=== PATIENT | male | born 1940 | race Caucasian/White ===

== ENCOUNTER 2022-06-09 10:30 | Outpatient (RCR) | payer MEDICARE, BC, SELFPAY ==
[2022-05-01] MEDS: HEPARIN 500 UNIT/5 ML SYRINGE IVF (11:48)
[2022-05-01] MEDS: SODIUM CHLORIDE 0.9 % (FLUSH) 10 ML SYRINGE IVF (11:48)
== END 2022-10-28 23:59 | disposition home or self-care (01) ==
LOC: CCIC 10:30
PROVIDERS: Visit Provider Internal Medicine Hematology & Oncology
DX: C83.30 Diffuse large B-cell lymphoma, unspecified site (principal)
CPT/HCPCS: 99211; J1642

== ENCOUNTER 2022-09-05 16:02 | Emergency (ER) | payer OTHER, MEDICARE, BC, SELFPAY ==
[2022-09-05] VITALS (15 sets, daily range): BP systolic 147–161; BP diastolic 75–86; PULSE 60–69; RESP 16; TEMP 36.5–36.6; O2SAT 99–100; BMI 23.5
--- NOTE | 2022-09-05 16:58 | ED_ITS ---
HPI - Male Genitourinary General Chief complaint: Urogenital Problems, Male Stated complaint: Blood in Urine,Exhausted/Pain since Stroke Time Seen by Provider: 09/05/22 16:36 History of Present Illness HPI Narrative: Pt is an 82 year old gentleman who is on eliquis following a CVA several months ago who passed blood in his uirne twice. Once last night and once today. Pt otherwise feels fine. [place] which went well. Pt feels well and doesn't remember ever having blood in his urine in the past. Pt has no other urinary symptoms. Pt has some memory loss due to his CVA but his son is with him telling me that there have been no other issues. Pt is no longer on aspirin. Related Data Home Medications Medication Instructions Recorded Confirmed B-complex with vitamin C 1 tab PO DAILY 05/01/22 09/05/22 amiodarone 200 mg tablet 100 mg PO DAILY 05/01/22 09/05/22 apixaban 2.5 mg tablet (Eliquis) 2.5 mg PO BID 05/01/22 09/05/22 ascorbic acid (vitamin C) 500 mg 500 mg PO DAILY 05/01/22 09/05/22 capsule aspirin 81 mg tablet,delayed 81 mg PO DAILY 05/01/22 09/05/22 release atorvastatin 80 mg tablet 80 mg PO QPM 05/01/22 09/05/22 cholecalciferol (vitamin D3) 25 25 mcg PO DAILY 05/01/22 09/05/22 mcg (1,000 unit) capsule levothyroxine 100 mcg capsule 100 mcg PO DAILY 05/01/22 09/05/22 melatonin 3 mg capsule 3 mg PO HS PRN 05/01/22 09/05/22 metformin 1,000 mg tablet 500 mg PO BID 05/01/22 09/05/22 metoprolol succinate 25 mg 12.5 mg PO DAILY 05/01/22 09/05/22 tablet,extended release 24 hr multivitamin 1 tab PO DAILY 05/01/22 09/05/22 pantoprazole 40 mg tablet,delayed 40 mg PO DAILY 05/01/22 09/05/22 release sertraline 50 mg tablet 50 mg PO DAILY 05/01/22 09/05/22 spironolactone 25 mg tablet 12.5 mg PO DAILY 05/01/22 09/05/22 tamsulosin 0.4 mg capsule 0.4 mg PO DAILY 05/01/22 09/05/22 vitamin E mixed 400 unit capsule 400 unit 05/01/22 Allergies Allergy/AdvReac Type Severity Reaction Status Date / Time No Known Drug Allergies Allergy Verified 09/05/22 16:41 Review of Systems Status of ROS: Reports: 10 or more systems reviewed and unremarkable except as noted in History and below [facility] Medical History (Updated 09/05/22 @ 18:49 by Cleveland Borja MD) Atrial flutter B-cell lymphoma CHF (congestive heart failure) CVA (cerebral vascular accident) Diabetes Hypertension Hypothyroidism Social History Smoking Status: Never smoker Do you use any of these nicotine containing products: None Second hand tobacco smoke exposure: No How often do you have a drink containing alcohol: never AUDIT-C Alcohol total score: 0 Non-prescribed substance use: denies use service: Yes Exam 2 Narrative: Exam Narrative: EXAM GENERAL: Patient appears comfortable and well. EYES: No scleral icterus. ENT: Tympanic membranes and oropharynx normal. THYROID: no thyroid nodules or thyromegaly. LYMPH: No supraclavicular or cervical lymphadenopathy. SKIN: Visible skin seen during exam normal or with benign process only. EXT: No dependent lower extremity pedal edema. HEART: Regular rate and rhythm with no murmurs, rubs, or gallops. LUNGS: Clear to auscultation bilaterally with no crackles or wheezes. ABD: Soft, non tender, non distended. PSYCH: Good eye contact, speech is not pressured. Const: Vital Signs, click to edit/add: Vital Signs - 24 hr 09/05/22 16:45 09/05/22 16:40 09/05/22 16:41 Temperature 97.7 F Pulse Rate 68 66 Pulse Rate [Pulse Oximeter] 67 Respiratory Rate 16 Blood Pressure 161/80 H Blood Pressure [Ri ght Upper Arm] 161/80 H Pulse Oximetry 100 100 100 Oxygen Delivery Me thod Room Air 09/05/22 16:45 09/05/22 17:02 09/05/22 17:15 Temperature Pulse Rate 67 69 62 Pulse Rate [Pulse Oximeter] Respiratory Rate Blood Pressure 147/86 H Blood Pressure [Ri ght Upper Arm] Pulse Oximetry 100 100 100 Oxygen Delivery Me thod 09/05/22 17:30 09/05/22 17:32 09/05/22 17:46 Temperature Pulse Rate 62 62 66 Pulse Rate [Pulse Oximeter] Respiratory Rate Blood Pressure 155/80 H Blood Pressure [Ri ght Upper Arm] Pulse Oximetry 100 100 100 Oxygen Delivery Me thod 09/05/22 18:00 09/05/22 18:02 09/05/22 18:15 Temperature Pulse Rate 61 62 63 Pulse Rate [Pulse Oximeter] Respiratory Rate Blood Pressure 147/75 H Blood Pressure [Ri ght Upper Arm] Pulse Oximetry 100 99 100 Oxygen Delivery Me thod 09/05/22 18:30 09/05/22 18:32 Temperature Pulse Rate 60 61 Pulse Rate [Pulse Oximeter] Respiratory Rate Blood Pressure 155/78 H Blood Pressure [Ri ght Upper Arm] Pulse Oximetry 100 100 Oxygen Delivery Me thod Course Course Hospital Course: UA, CMP, CBC ordered. Reevaluation(s) Reevaluation #1: Labs are reviewed and significant for a Hgb of 9.7, a Cr of 2.4 and a Glucose of 327. CT of the abd and pelvis without contrast upon my review shows a 3mm proximal renal stone. Time: 18:41 Vital Signs Vital signs: Initial Vital Signs Pulse Rate 68 09/05/22 16:40 Blood Pressure 161/80 H 09/05/22 16:40 Blood Pressure Mean 107 09/05/22 16:40 Pulse Oximetry 100 09/05/22 16:40 Vital Signs Pulse Rate 68 09/05/22 16:40 Blood Pressure 161/80 H 09/05/22 16:40 Pulse Oximetry 100 09/05/22 16:40 Temperature 97.7 F 09/05/22 16:45 Pulse Rate 61 09/05/22 18:32 Respiratory Rate 16 09/05/22 16:45 Blood Pressure 155/78 H 09/05/22 18:32 Pulse Oximetry 100 09/05/22 18:32 Oxygen Delivery Method 09/05/22 16:45 MDM - Male Genitourinary MDM Narrative Medical decision making narrative: Pt is a very complex 82 year old gentleman who presents with 2 episodes of painless hematuria. Pt's evaluation shows a 3 mm kidney stone. He has no history of kidney stones or hematuria but is on Eliquis. Pt labs also show chronic appearing anemia, renal insufficiency and hyperglycemia. Pt had his glyburide discontinued due to hypoglycemia and metformin was previously stopped due to renal insufficiency. Pt feels well now and has no concerns. I have a number of concerns. [facility] and does not have a local primary to help with the many chronic issues. I asked his son to help him get back [facility] touch with the [facility] to make sure that we are following up on the Chronic Renal Insufficiency and anemia. I am reluctant to start Flomax due to polypharmacy already present. Pt will hydrate and screen his urine. I also gave them my card and asked that they contact me to help with management of his complex issues. Pt will hold his Eliquis tonight and [facility] in [facility]. Differential Diagnosis Differential diagnosis: Likely urinary tract infection, urethritis, prostatitis and acute retention of urine Lab Data Labs: Lab Results 09/05/22 09/05/22 09/05/22 Range/Units 16:52 17:10 17:10 WBC 6.20 (4.50-11.00) K/uL RBC 3.09 L (4.30-5.90) m/uL Hgb 9.7 L (13.5-17.5) gm/dL Hct 29.5 L (37.0-53.0) % MCV 96 (80-100) fL MCH 31 (26-34) pg MCHC 33 (32-36) gm/dL RDW Coeff of Kurt 13.1 (11.5-15.5) % Plt Count 250 (140-440) K/uL Neut % (Auto) 67.5 (42.0-72.0) % Lymph % (Auto) 21.6 (20-44) % [place] % (Auto) 9.0 (0.0-11.0) % Eos % (Auto) 1.1 (0.0-7.0) % Baso % (Auto) 0.6 (0.0-3.0) % Neut # (Auto) 4.18 (1.7-7.0) K/uL Lymph # (Auto) 1.34 (0.90-2.90) K/uL [place] # (Auto) 0.60 (0.00-0.90) K/UL Eos # (Auto) 0.07 (0.00-0.50) K/uL Baso # (Auto) 0.04 (0.00-0.30) K/uL Sodium 136 (135-149) mmol/L Potassium 4.4 (3.6-5.1) mmol/L Chloride 103 (96-114) mmol/L Carbon Dioxide 25 (20-32) mmol/L BUN 31 H (7-30) mg/dL Creatinine 2.4 H (0.5-1.5) mg/dL Estimated Creat Clear 22.19 Estimated GFR 26 ml/min Glucose 327 H (60-115) mg/dL Calcium 8.3 L (8.4-10.6) mg/dL Urine Color Red A (Yellow) Urine Appearance Cloudy A (Clear) Urine pH 5.5 (5.0-8.5) Ur Specific [place] 1.015 (1.000-1.030) Urine Protein 2+ A (Negative) Urine Glucose (UA) 2+ A (Negative) Urine Ketones Negative (Negative) Urine Blood 3+ A (Negative) Urine Nitrite Negative (Negative) Urine Bilirubin Negative (Negative) Urine Urobilinogen 0.2 (0.2-1.0) Ur Leukocyte Esterase Negative (Negative) Urine RBC >100 A (0-2) Urine WBC 2-5 (0-5) Urine WBC Clumps None (None) Ur Squamous Epith Cells None (None-Few) Urine Bacteria None (None) Discharge Plan Discharge Clinical Impression: Kidney stone Patient Disposition: Home, Self-Care Condition: Stable Instructions: Kidney Stones (ED) Additional Instructions: Hold veronika's eliquis Screen urine Hydrate [facility] Borja Activity Level: No Restrictions Discharge Diet: Regular Prescriptions: No Action amiodarone 200 mg tablet 100 mg PO DAILY Eliquis 2.5 mg tablet 2.5 mg PO BID ascorbic acid (vitamin C) 500 mg capsule 500 mg PO DAILY aspirin 81 mg tablet,delayed release (DR/EC) 81 mg PO DAILY atorvastatin 80 mg tablet 80 mg PO QPM B-complex with vitamin C Tablet 1 tab PO DAILY cholecalciferol (vitamin D3) 25 mcg (1,000 unit) capsule 25 mcg PO DAILY levothyroxine 100 mcg capsule 100 mcg PO DAILY melatonin 3 mg capsule 3 mg PO HS PRN metformin 1,000 mg tablet 500 mg PO BID Hold Instructions: kidney disease metoprolol succinate 25 mg tablet extended release 24 hr 12.5 mg PO DAILY multivitamin Tablet 1 tab PO DAILY pantoprazole 40 mg tablet,delayed release (DR/EC) 40 mg PO DAILY sertraline 50 mg tablet 50 mg PO DAILY spironolactone 25 mg tablet 12.5 mg PO DAILY tamsulosin 0.4 mg capsule 0.4 mg PO DAILY Hold Instructions: unknown vitamin E mixed 400 unit capsule 400 unit Follow Up/Referrals: Provider,Not a Local [Primary Care Provider] - Stand Alone Forms: [employer] Info Instructions
[2022-09-05 17:06] LABS: Appearance Urine Cloudy (Clear); Bilirubin Urine Negative (Negative); Blood Urine 3+ (Negative); Color Urine Red (Yellow); Glucose Urine 2+ (Negative); Ketones Urine Negative (Negative); Leukocyte Esterase Urine Negative (Negative); Nitrite Urine Negative (Negative); Protein Urine 2+ (Negative); Specific Gravity Urine 1.015 (1.000-1.030); Urobilinogen Urine 0.2 (0.2-1.0); pH Urine 5.5 (5.0-8.5)
[2022-09-05 17:21] LABS: RBC Urine >100 (0-2)
--- NOTE | 2022-09-05 17:22 | CRLHL7_ITS ---
For Patients: As a result of the Century Cures Act, medical imaging exams and procedure reports are released immediately into your electronic medical record. You may view this report before your referring provider. If you have questions, please contact your health care provider. INDICATION: Hematuria. TECHNIQUE: CT abdomen and pelvis without contrast. COMPARISON: January 12, 2020. FINDINGS: Lower chest: Elevation of the left hemidiaphragm. Scattered dependent atelectasis. Partial visualization of severe coronary artery calcifications/stenting. Liver: Normal in size and attenuation. No suspicious masses. Gallbladder and bile ducts: Cholecystectomy. Pancreas: Unremarkable. No mass or inflammation. Spleen: Normal in size. No masses. Adrenal glands: Right adrenal calcifications likely from remote injury. Kidneys: Minimal right hydroureteronephrosis secondary to 3 millimeter proximal right ureteral stone. Additional tiny bilateral nonobstructing stones. GI tract: Colonic diverticulosis without diverticulitis. Moderate colonic stool burden. Normal in caliber. No sign of mass or inflammation. Vasculature: Moderate aortoiliac arterial calcifications. Abdominal aorta is normal in caliber. Lymph nodes: No lymphadenopathy. Peritoneum/Abdominal Wall: Unremarkable. No sign of mass or infiltration. No free air or significant free fluid. Pelvis: Prostatomegaly, abutting the base of the bladder. Mild circumferential bladder wall thickening. Bones: Left hip intertrochanteric nail. Degenerative changes of the osseous structures. Age-indeterminate T10 compression deformity. Recommend correlation for point tenderness. IMPRESSION: Minimal right hydroureteronephrosis secondary to a 3 millimeter proximal right ureteral stone. Additional tiny bilateral nonobstructing renal stones. Prostatomegaly with circumferential bladder wall thickening, likely related to chronic bladder outlet obstruction from BPH. Recommend correlation with urinalysis if superimposed UTI suspected. Age-indeterminate T10 compression deformity. Recommend correlation for point tenderness Please note that all CT scans at this facility use dose modulation, iterative reconstruction, and/or weight-based dosing when appropriate to reduce radiation dose to as low as reasonably achievable. Dictated by Mark Cevallos MD @ 09/05/2022 6:21:08 PM (Electronically Signed)
[2022-09-05 17:28] LABS: Basophils Absolute Auto 0.04 K/uL (0.00-0.30); Basophils Percent Auto 0.6 % (0.0-3.0); Eosinophils Absolute Auto 0.07 K/uL (0.00-0.50); Eosinophils Percent Auto 1.1 % (0.0-7.0); Hematocrit 29.5 % (37.0-53.0); Hemoglobin* 9.7 gm/dL (13.5-17.5); Immature Granulocytes Abs Auto 0.01 K/uL (0.00-0.30); Immature Granulocytes Pct Auto 0.2 %; Lymphocytes Absolute Auto 1.34 K/uL (0.90-2.90); Lymphocytes Percent Auto 21.6 % (20-44); Mean Corpuscular HGB Conc 33 gm/dL (32-36); Mean Corpuscular Hemoglobin 31 pg (26-34); Mean Corpuscular Volume 96 fL (80-100); Neutrophils Absolute Auto 4.18 K/uL (1.7-7.0); Neutrophils Percent Auto 67.5 % (42.0-72.0); Platelet Count* 250 K/uL (140-440); RDW Coefficient of Variation % 13.1 % (11.5-15.5); Red Blood Count 3.09 m/uL (4.30-5.90)
[2022-09-05 17:31] LABS: Slide Review Reflex No
[2022-09-05 17:45] LABS: Chloride* 103 mmol/L (96-114); Potassium* 4.4 mmol/L (3.6-5.1); Sodium* 136 mmol/L (135-149)
[2022-09-05 17:48] LABS: Carbon Dioxide* 25 mmol/L (20-32); Creatinine* 2.4 mg/dL (0.5-1.5); Est. Creatinine Clearance* 22.19; Estimated Glomerular Filt Rate 26 ml/min
[2022-09-05 17:49] LABS: Blood Urea Nitrogen* 31 mg/dL (7-30); Calcium* 8.3 mg/dL (8.4-10.6); Glucose* 327 mg/dL (60-115)
[2022-09-05] MEDS: HEPARIN 500 UNIT/5 ML SYRINGE IVF (18:52)
--- NOTE | 2022-09-05 19:07 | ED.NURSE ---
Patient was discharged with son. PORT de-accessed with heparin. Vital signs within normal limits. Patient is to hold P[facility]ce and [facility] Borja tomorrow. Supplies for straining urine instructed and sent home with patient and son. All questions answered and left via wheelchair escort with son.
== END 2022-09-05 19:09 | disposition home or self-care (01) ==
PROVIDERS: Emergency Provider Internal Medicine
DX: N20.0 Calculus of kidney (principal)
CPT/HCPCS: 36415; 74176; 80048; 81003; 81015; 85025; 99283; J1642

== ENCOUNTER 2022-09-12 19:29 | Emergency (ER) | payer MEDICARE, BC, SELFPAY ==
[2022-09-12 19:43] VITALS: BP 132/74; PULSE 82; RESP 16; TEMP 37.1; O2SAT 98
--- NOTE | 2022-09-12 20:47 | ED_ITS ---
HPI - General Adult General Chief complaint: Fall/Minor Trauma Stated complaint: Two Falls Today Time Seen by Provider: 09/12/22 19:32 Source: patient and family Mode of arrival: ambulatory Limitations: other (Dementia) History of Present Illness HPI narrative: 82-year-old male who lives independently with his comes in with his daughter today for evaluation of 2 mechanical-type fall today. The 1st fall happened this morning, he was reaching while in bed towards his cellphone when he reached too far and fell out of bed. He did not hit his head, lose consciousness or have any neurological changes and was able to get up without assistance. This evening, he was reaching around a chair, unplugging some Jevon lights when he lost his balance and fell over. He had some mild back pain as a result but again was able to get himself up without difficulty and has been ambulating around the house with no problems. He has a history of a stroke and has some cognitive impairment as a result. Daughter states that he is mentating at his baseline today. They do not notice any neurological changes, urinary incontinence. When I talked to him about his pain, he denies any knee pain hip pain, pelvis pain, he points to his right lower back as a source of potential back pain. But again he is able to ambulate into the exam room without difficulty. Has not tried taking Tylenol or ibuprofen to help with his symptoms. Did not hit his head. He has not been showing any new signs of illness, fevers, vomiting. His appetite has remained good. He has remained a little fatigued through the day but is still able to get himself to the bathroom, perform basic ADLs. When I asked his daughter if there was some major concern as to why they came to the emergency department, she reports that since he fell twice she thought he should be evaluated. When I ask more questions regarding home safety and his overall situation, she states that they are looking into more elder services for both him and his . They do have ongoing concerns about his home safety but do not feel like he is in imminent harm currently. He still manages his own medications and it does appear as though he takes these consistently even if he cannot list what therefore or their names. Past medical history reviewed from ER chart last week. Med seem consistent with EMR database. No known drug allergies. Socially the family denies any intoxication or suspicion for drug use. ROS is notable only for the musculoskeletal symptoms as above, otherwise at baseline times 12 systems. Related Data Home Medications Medication Instructions Recorded Confirmed B-complex with vitamin C 1 tab PO DAILY 05/01/22 09/05/22 amiodarone 200 mg tablet 100 mg PO DAILY 05/01/22 09/12/22 apixaban 2.5 mg tablet (Eliquis) 2.5 mg PO BID 05/01/22 09/12/22 ascorbic acid (vitamin C) 500 mg 500 mg PO DAILY 05/01/22 09/12/22 capsule aspirin 81 mg tablet,delayed 81 mg PO DAILY 05/01/22 09/12/22 release atorvastatin 80 mg tablet 80 mg PO QPM 05/01/22 09/12/22 cholecalciferol (vitamin D3) 25 25 mcg PO DAILY 05/01/22 09/05/22 mcg (1,000 unit) capsule levothyroxine 100 mcg capsule 100 mcg PO DAILY 05/01/22 09/12/22 melatonin 3 mg capsule 3 mg PO HS PRN 05/01/22 09/12/22 metformin 1,000 mg tablet 500 mg PO BID 05/01/22 09/12/22 metoprolol succinate 25 mg 12.5 mg PO DAILY 05/01/22 09/12/22 tablet,extended release 24 hr multivitamin 1 tab PO DAILY 05/01/22 09/12/22 pantoprazole 40 mg tablet,delayed 40 mg PO DAILY 05/01/22 09/12/22 release sertraline 50 mg tablet 50 mg PO DAILY 05/01/22 09/12/22 spironolactone 25 mg tablet 12.5 mg PO DAILY 05/01/22 09/05/22 tamsulosin 0.4 mg capsule 0.4 mg PO DAILY 05/01/22 09/12/22 vitamin E mixed 400 unit capsule 400 unit 05/01/22 Allergies Allergy/AdvReac Type Severity Reaction Status Date / Time No Known Drug Allergies Allergy Verified 09/05/22 16:41 [facility] Medical History Atrial flutter B-cell lymphoma CHF (congestive heart failure) CVA (cerebral vascular accident) Diabetes Hypertension Hypothyroidism Social History Smoking Status: Never smoker Do you use any of these nicotine containing products: None Second hand tobacco smoke exposure: No How often do you have a drink containing alcohol: never AUDIT-C Alcohol total score: 0 Non-prescribed substance use: denies use service: Yes Exam 2 Const: Vital Signs, click to edit/add: Vital Signs - 24 hr 09/12/22 19:43 Temperature 98.7 F Pulse Rate [Left P ulse Oximeter] 82 Respiratory Rate 16 Blood Pressure [Ri ght Upper Arm] 132/74 Pulse Oximetry 98 Oxygen Delivery Me thod Room Air Documenting provider has reviewed patient's vital signs: yes Common normals: no apparent distress and alert General appearance: cooperative and well kempt Orientation/consciousness: Yes awake Other: Poor historian but attempts to answer questions. No confabulation. HENMT: Common normals: normocephalic and head/scalp atraumatic Head and scalp: normocephalic and atraumatic Face and sinus: normal facial exam Mouth: oral and palatal mucosa normal Throat: posterior oropharynx normal Eye: Common normals: PERRL, EOMs intact bilaterally and conjunctivae normal Conjunctiva: conjunctiva(e) normal Pupil: PERRL Neck & C-Spine: Common normals: full ROM and no lymphadenopathy Cervical spine: cervical ROM normal; no cervical spine tenderness Resp: Common normals: normal respiratory effort, no use of accessory muscles and clear to auscultation bilaterally Effort & inspection: able to speak in complete sentences Auscultation: clear to auscultation bilaterally Cardio: Common normals: regular rate, regular rhythm, no murmurs and peripheral pulses 2+ throughout Rate: regular rate Rhythm: regular rhythm Peripheral pulses: pulses 2+ throughout GI: Common normals: Normal to inspection, nondistended, normoactive bowel sounds present and soft to palpation Palpation: soft : Common normals: no CVA tenderness Bladder/kidney exam: no CVA tenderness Back & Pelvis: Common normals: no CVA tenderness Thoracic spine/upper back: normal to inspection Lumbar spine/lower back: normal to inspection, paraspinal muscle tenderness (Mild, on right near L4/L5) and straight leg raise negative bilaterally; no paraspinal muscle spasm Sacroiliac joints: SI joints normal Other: No point bony tenderness on thoracic or lumbar spine. Able to pull himself up with the side rails and ambulate without difficulty. Extremity: Common normals: normal to inspection and full ROM Other: Both knees with no bruising, no effusion, normal range of motion and no point bony tenderness. Neuro: Sensorium/orientation: awake and alert Gait (neuro): normal gait Motor exam: no tremor noted and no movement abnormalities noted Psych: Common normals: speech normal Appearance: well kempt Speech: normal speech Mood and affect: euthymic mood Insight: fair Judgement: fair Skin: Common normals: no rashes or lesions noted Narrative: No bruising, injury or signs of trauma. General skin exam: no rashes or lesions noted Course Vital Signs Vital signs: Initial Vital Signs Temperature 98.7 F 09/12/22 19:43 Temperature Source Temporal Artery Scan 09/12/22 19:43 Pulse Rate 82 09/12/22 19:43 Respiratory Rate 16 09/12/22 19:43 Blood Pressure 132/74 09/12/22 19:43 Blood Pressure Mean 93 09/12/22 19:43 Blood Pressure Position Standing 09/12/22 19:43 Pulse Oximetry 98 09/12/22 19:43 Oxygen Delivery Method 09/12/22 19:43 Vital Signs Temperature 98.7 F 09/12/22 19:43 Pulse Rate 82 09/12/22 19:43 Respiratory Rate 16 09/12/22 19:43 Blood Pressure 132/74 09/12/22 19:43 Pulse Oximetry 98 09/12/22 19:43 Oxygen Delivery Method 09/12/22 19:43 Temperature 98.7 F 09/12/22 19:43 Pulse Rate 82 09/12/22 19:43 Respiratory Rate 16 09/12/22 19:43 Blood Pressure 132/74 09/12/22 19:43 Pulse Oximetry 98 09/12/22 19:43 Oxygen Delivery Method 09/12/22 19:43 Medical Decision Making MDM Narrative Medical decision making narrative: Counseled family on the mechanism of falls, both sound very mechanical. He is not exhibiting any significant pain and has had no symptoms of illness or change from baseline. Offered labs, workup, x-rays but they are very unlikely to change my management. More time was spent discussing home safety, overall prognosis and during that daughter is aware of his dementia and they have a plan to move forward on getting them more help and a safer living situation. She verbalizes that she does not think labs or additional workup would be helpful today, they can take Tylenol at home and they will continue moving forward with her safety plan as a family. I agree that this is best for them. Discharge Plan Discharge Clinical Impression: Accident due to mechanical fall without injury Patient Disposition: Home w/ Parent or Adult Condition: Stable Instructions: Fall Prevention for Older Adults (ED) Additional Instructions: There were no signs of significant injury from the mechanical-type falls from today. I do not recommend further workup. I have significant concerns about overall frailty and his ability to continue living independently, managing his own medications, knowing what to do in minor accident situations. As we discussed, mild mechanical-type falls that do not seem to result in any major injury do not need to be looked at in the emergency department unless there are neurological changes, he cannot bear weight, or has a significant change in stat us. I recommend Tylenol for pain, he is likely to have a back ache for the next 3-7 days. I do not recommend any advanced imaging based on the exam, as it would not change our management even if we did see a minor change. I am glad to hear that you are already looking at additional assistance options as I do question his ability to live independently as time moves forward. Please follow-up with your primary care provider if your symptoms fail to improve or worsen. Activity Level: No Restrictions Discharge Diet: Regular Prescriptions: No Action amiodarone 200 mg tablet 100 mg PO DAILY Eliquis 2.5 mg tablet 2.5 mg PO BID ascorbic acid (vitamin C) 500 mg capsule 500 mg PO DAILY aspirin 81 mg tablet,delayed release (DR/EC) 81 mg PO DAILY atorvastatin 80 mg tablet 80 mg PO QPM B-complex with vitamin C Tablet 1 tab PO DAILY cholecalciferol (vitamin D3) 25 mcg (1,000 unit) capsule 25 mcg PO DAILY levothyroxine 100 mcg capsule 100 mcg PO DAILY melatonin 3 mg capsule 3 mg PO HS PRN metformin 1,000 mg tablet 500 mg PO BID Hold Instructions: kidney disease metoprolol succinate 25 mg tablet extended release 24 hr 12.5 mg PO DAILY multivitamin Tablet 1 tab PO DAILY pantoprazole 40 mg tablet,delayed release (DR/EC) 40 mg PO DAILY sertraline 50 mg tablet 50 mg PO DAILY spironolactone 25 mg tablet 12.5 mg PO DAILY tamsulosin 0.4 mg capsule 0.4 mg PO DAILY Hold Instructions: unknown vitamin E mixed 400 unit capsule 400 unit Follow Up/Referrals: Provider,Not a Local [Primary Care Provider] - Stand Alone Forms: [employer] Info Instructions
[2022-09-12 21:00] VITALS: BP 171/85; PULSE 77; RESP 14; O2SAT 98
== END 2022-09-12 21:06 | disposition home or self-care (01) ==
LOC: ED 20:53
PROVIDERS: Emergency Provider Family Medicine
DX: Z71.1 Person with feared health complaint in whom no diagnosis is made (principal); W01.0XXA Fall on same level from slipping, tripping and stumbling without subsequent striking against object, initial encounter
CPT/HCPCS: 99283

== ENCOUNTER 2023-05-01 14:30 | Emergency (ER) | payer MEDICARE, MEDICAID, BC, SELFPAY ==
[2023-05-01 15:18] VITALS: BP 94/60; PULSE 89; RESP 16; TEMP 36.4; O2SAT 97; BMI 25.1
[2023-05-01 17:03] VITALS: BP 103/68; PULSE 85; RESP 18; O2SAT 98
--- NOTE | 2023-05-01 17:29 | ED_ITS ---
HPI - General Adult General Chief complaint: Weakness Stated complaint: sleeping excessively, not eating, difficult breath Time Seen by Provider: 05/01/23 17:28 History of Present Illness HPI narrative: Starting two weeks, patient sleeping close to 20 hours per day, slight cough, no energy, poor appetite. Poor memory related to a stroke in January 2022. Per son, making at statements at home about wanting to give up related to declining health status.4 It 83-year-old man presenting to the emergency department with son with concern of fatigue. This is apparently the information that has been passed on by mother. Since his stroke in January of 2022 Mr. German does seem to have trouble with short-term recall. At this time he denies any pain. No fever or least no one has been measuring it. Not particularly short of breath but has been having some cough. Over the last few days has been sleeping excessively. Has not been eating very well. Poor energy. There have been some statements about ?wanting to give up? though Mr. German denies this and says that ?I think I want to live?. There have been some emotional outbursts apparently reported by spouse to son. Reportedly she is also concerned about his heart. Is not describing any chest pain. Is not engaging in any particular activities for diversion or spending time with anyone. Most of his friends would require being able to drive to visit. Does have a history of cardiac stenting Apparently gets care with visits twice a year at the [facility]. does take his pills and supervised though there is a system of alarms prompting him to take them. Ultimately unclear whether not he is actually taking them. Weight is thought to be around 160 at baseline but also uncertain. Sounds like he may have been admitted for diuresis and with elevated creatinine at some point Related Data Home Medications Medication Instructions Recorded Confirmed B-complex with vitamin C 1 tab PO DAILY 05/01/22 09/05/22 amiodarone 200 mg tablet 100 mg PO DAILY 05/01/22 09/12/22 apixaban 2.5 mg tablet (Eliquis) 2.5 mg PO BID 05/01/22 09/12/22 ascorbic acid (vitamin C) 500 mg 500 mg PO DAILY 05/01/22 09/12/22 capsule aspirin 81 mg tablet,delayed 81 mg PO DAILY 05/01/22 09/12/22 release atorvastatin 80 mg tablet 80 mg PO QPM 05/01/22 09/12/22 cholecalciferol (vitamin D3) 25 25 mcg PO DAILY 05/01/22 09/05/22 mcg (1,000 unit) capsule levothyroxine 100 mcg capsule 100 mcg PO DAILY 05/01/22 09/12/22 melatonin 3 mg capsule 3 mg PO HS PRN 05/01/22 09/12/22 metformin 1,000 mg tablet 500 mg PO BID 05/01/22 09/12/22 metoprolol succinate 25 mg 12.5 mg PO DAILY 05/01/22 09/12/22 tablet,extended release 24 hr multivitamin 1 tab PO DAILY 05/01/22 09/12/22 pantoprazole 40 mg tablet,delayed 40 mg PO DAILY 05/01/22 09/12/22 release sertraline 50 mg tablet 50 mg PO DAILY 05/01/22 09/12/22 spironolactone 25 mg tablet 12.5 mg PO DAILY 05/01/22 09/05/22 tamsulosin 0.4 mg capsule 0.4 mg PO DAILY 05/01/22 09/12/22 vitamin E mixed 400 unit capsule 400 unit 05/01/22 Previous Rx's Medication Instructions Recorded furosemide 40 mg tablet 40 mg PO DAILY #30 tabs 05/01/23 Allergies Allergy/AdvReac Type Severity Reaction Status Date / Time No Known Drug Allergies Allergy Verified 09/05/22 16:41 Review of Systems Status of ROS: Reports: 6 or more systems reviewed and unremarkable except as noted in History and below [facility] Medical History CHF (congestive heart failure) ?I50.9 - Heart failure, unspecified (ICD-10) B-cell lymphoma ?C85.10 - Unspecified B-cell lymphoma, unspecified site (ICD-10) Diabetes ?E11.9 - Type 2 diabetes mellitus without complications (ICD-10) Hypothyroidism ?E03.9 - Hypothyroidism, unspecified (ICD-10) Hypertension ?I10 - Essential (primary) hypertension (ICD-10) CVA (cerebral vascular accident) ?I63.9 - Cerebral infarction, unspecified (ICD-10) Atrial flutter ?I48.92 - Unspecified atrial flutter (ICD-10) Social History Smoking Status: Never smoker Do you use any of these nicotine containing products: None Second hand tobacco smoke exposure: No How often do you have a drink containing alcohol: never AUDIT-C Alcohol total score: 0 Non-prescribed substance use: denies use service: Yes Exam Narrative: Exam Narrative: Flatter affect. NAD. Calm. Breathing easily. Lungs with some clearing basilar crepitus. Does not appear particularly frail just fatigued. Oropharynx is or little sticky mostly moist. Head is atraumatic. Neck is supple nontender. Heart in a regular rate and rhythm with is 2/6 systolic murmur. Abdomen is soft protuberant nontender. Skin is warm and dry without evidence of injury. Lower extremities are without edema. Extremities are well perfused. Does exhibit some difficulty in recall, noncommittal when pressed. Const: Vital Signs, click to edit/add: Vital Signs - 24 hr 05/01/23 15:18 05/01/23 17:03 Temperature 97.5 F L Pulse Rate [Right Pulse Oximeter] 89 85 Respiratory Rate 16 18 Blood Pressure [Ri ght Upper Arm] 94/60 103/68 Pulse Oximetry 97 98 Oxygen Delivery Me thod Room Air Room Air Documenting provider has reviewed patient's vital signs: yes Course Vital Signs Vital signs: Initial Vital Signs Temperature 97.5 F L 05/01/23 15:18 Temperature Source Temporal Artery Scan 05/01/23 15:18 Pulse Rate 89 05/01/23 15:18 Pulse Rhythm Regular 05/01/23 15:18 Respiratory Rate 16 05/01/23 15:18 Blood Pressure 94/60 05/01/23 15:18 Blood Pressure Mean 71 05/01/23 15:18 Blood Pressure Position Sitting 05/01/23 15:18 Pulse Oximetry 97 05/01/23 15:18 Oxygen Delivery Method Room Air 05/01/23 15:18 Vital Signs Temperature 97.5 F L 05/01/23 15:18 Pulse Rate 89 05/01/23 15:18 Respiratory Rate 16 05/01/23 15:18 Blood Pressure 94/60 05/01/23 15:18 Pulse Oximetry 97 05/01/23 15:18 Oxygen Delivery Method Room Air 05/01/23 15:18 Temperature 97.1 F L 05/01/23 21:11 Pulse Rate 78 08/15/23 21:11 Respiratory Rate 16 05/01/23 21:11 Blood Pressure 100/68 05/01/23 21:11 Pulse Oximetry 98 05/01/23 17:03 Oxygen Delivery Method Room Air 05/01/23 17:03 Medical Decision Making MDM Narrative Medical decision making narrative: With this small cough in fatigue will evaluate for potential infectious etiology. Does appear to be some depressive symptoms as well. Unclear who his primary care provider is. Denies being suicidal at this time but with mood lability this may be related. 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 This may also be related to these emotional outbursts. Given IV hydration as I would suspect hydrated as well. Might improve some energy. Creatinine looks to be near baseline. Transaminases somewhat elevated at a little over 400. This might be related to proBNP of over 27,000. Chest x-ray by my read does appear to have some interstitial congestion. Did order follow-up ultrasound I suspect this to be low yield. Confirmed absent gallbladder otherwise unremarkable per my conversation with postal service window clerk. CRP moderately elevated and probably related to what looks to be infected urine. Has been generally well here in the emergency department. Will try to manage outpatient. Give initial dose of furosemide here today. Likely combination of factors are contributing to fatigue that of CHF e xacerbation, urinary tract infection and some degree of depression following a stroke, failure to thrive? I did discuss this patient briefly with Dr. Borja. See patient discharge plan Lab Data Lab results reviewed: Yes I reviewed the patient's lab results Labs: Lab Results 05/01/23 05/01/23 Range/Units 18:00 19:15 WBC 4.84 (4.50-11.00) K/uL RBC 3.27 L (4.30-5.90) m/uL Hgb 8.9 L (13.5-17.5) gm/dL Hct 28.9 L (37.0-53.0) % MCV 88 (80-100) fL MCH 27 (26-34) pg MCHC 31 L (32-36) gm/dL RDW Coeff of Kurt 14.4 (11.5-15.5) % Plt Count 191 (140-440) K/uL Neut % (Auto) 67.6 (42.0-72.0) % Lymph % (Auto) 16.9 L (20-44) % [place] % (Auto) 14.3 H (0.0-11.0) % Eos % (Auto) 0.2 (0.0-7.0) % Baso % (Auto) 0.8 (0.0-3.0) % Neut # (Auto) 3.27 (1.7-7.0) K/uL Lymph # (Auto) 0.80 L (0.90-2.90) K/uL [place] # (Auto) 0.70 (0.00-0.90) K/UL Eos # (Auto) 0.01 (0.00-0.50) K/uL Baso # (Auto) 0.04 (0.00-0.30) K/uL Abs Immat Gran (auto) 0.01 (0.00-0.30) K/uL Imm/Tot Granulo (auto) 0.2 % Sodium 135 (135-149) mmol/L Potassium 3.4 L (3.6-5.1) mmol/L Chloride 98 (96-114) mmol/L Carbon Dioxide 24 (20-32) mmol/L BUN 29 (7-30) mg/dL Creatinine 1.8 H (0.5-1.5) mg/dL Estimated Creat Clear 29.07 Estimated GFR 37 ml/min Glucose 143 H (60-115) mg/dL Calcium 8.2 L (8.4-10.6) mg/dL Total Bilirubin 1.5 (0.1-1.5) mg/dL Direct Bilirubin 0.6 H (0.0-0.5) mg/dL AST 409 H (12-35) U/L ALT 406 H (4-50) U/L Alkaline Phosphatase 109 (40-150) U/L C-Reactive Protein 7.0 H (0.5-1.0) mg/dL NT-Pro-B Natriuret Pep 10168 pg/mL Total Protein 7.3 (6.0-8.3) g/dL Albumin 3.8 (3.3-5.0) g/dL TSH 1.050 (0.270-4.20) uIU/mL Urine Color [place] A (Yellow) Urine Appearance Clear (Clear) Urine pH 5.5 (5.0-8.5) Ur Specific [place] >= 1.030 (1.000-1.030) Urine Protein 2+ A (Negative) Urine Glucose (UA) Negative (Negative) Urine Ketones Negative (Negative) Urine Blood 3+ A (Negative) Urine Nitrite Negative (Negative) Urine Bilirubin Negative (Negative) Urine Urobilinogen 2.0 A (0.2-1.0) Ur Leukocyte Esterase 1+ A (Negative) Urine RBC 2-5 A (0-2) Urine WBC 25-50 A (0-5) Ur Squamous Epith Cells Few (None-Few) Urine Bacteria Few A (None) Fine Granular Casts Few A (None) Ethyl Alcohol < 0.01 L (0.01-0.03) % SARS-CoV-2 (PCR) Negative SARS-CoV-2 (Negative) Influenza Type A (PCR) Negative PCR FLU A (Negative) Influenza Type B (PCR) Negative PCR FLU B (Negative) RSV (PCR) Negative PCR RSV (Negative) Discharge Plan Discharge Clinical Impression: Urinary tract infection, Fatigue, CHF (congestive heart failure) Patient Disposition: Home w/ Parent or Adult Condition: Stable Instructions: Urinary Tract Infection in Men (ED) Additional Instructions: A urine culture is pending here. Please follow[facility] or [facility] seeing Dr[facility] Borja here in clinic. I would like you to be seen for recheck within a week. Would recheck labs at that time as well. Take furosemide as 40 mg daily for 6 days. Then I am hoping you can be reassessed in clinic. You received a dose here tonight and I would like you to take another dose tomorrow morning and then generally in the mornings. Return for worsening weakness, fever, increasing and persistent shortness of breath. I do think you need to find things to do to keep busy, interested. Might need some written reminder. Plan fun things to do with other people. Can discuss your feelings about your current circumstances on follow-up in primary care clinic. If you feel unsafe though please return to the emergency department. Prescriptions: New furosemide 40 mg tablet 40 mg PO DAILY Qty: 30 0RF No Action amiodarone 200 mg tablet 100 mg PO DAILY Eliquis 2.5 mg tablet 2.5 mg PO BID ascorbic acid (vitamin C) 500 mg capsule 500 mg PO DAILY aspirin 81 mg tablet,delayed release (DR/EC) 81 mg PO DAILY atorvastatin 80 mg tablet 80 mg PO QPM B-complex with vitamin C Tablet 1 tab PO DAILY cholecalciferol (vitamin D3) 25 mcg (1,000 unit) capsule 25 mcg PO DAILY levothyroxine 100 mcg capsule 100 mcg PO DAILY melatonin 3 mg capsule 3 mg PO HS PRN metformin 1,000 mg tablet 500 mg PO BID Hold Instructions: kidney disease metoprolol succinate 25 mg tablet extended release 24 hr 12.5 mg PO DAILY multivitamin Tablet 1 tab PO DAILY pantoprazole 40 mg tablet,delayed release (DR/EC) 40 mg PO DAILY sertraline 50 mg tablet 50 mg PO DAILY spironolactone 25 mg tablet 12.5 mg PO DAILY tamsulosin 0.4 mg capsule 0.4 mg PO DAILY Hold Instructions: unknown vitamin E mixed 400 unit capsule 400 unit Follow Up/Referrals: Provider,Not a Local [Primary Care Provider] - Stand Alone Forms: [facility] Info Inst[facility]
--- NOTE | 2023-05-01 17:47 | CRLHL7_ITS ---
For Patients: As a result of the Century Cures Act, medical imaging exams and procedure reports are released immediately into your electronic medical record. You may view this report before your referring provider. If you have questions, please contact your health care provider. INDICATION: Cough, fatigue. TECHNIQUE: Single portable AP view. COMPARISON: November 19, 2019. FINDINGS: Cardiomegaly. No new mediastinal widening. Sternotomy wires re-identified. Right-sided Port-A-Cath, not significantly changed. Elevation left hemidiaphragm, similar to prior. New pulmonary interstitial prominence bilaterally, and increasing opacity left greater than right lower zones. No sign of pneumothorax. IMPRESSION: Increasing bibasilar opacities and increased interstitial density, developing CHF would be a consideration. Dictated by Noah Morales MD @ 05/01/2023 6:55:42 PM (Electronically Signed)
[2023-05-01] MEDS: 0.9 % SODIUM CHLORIDE 1000 ml 1,000 ML IV (18:20)
[2023-05-01 18:28] LABS: Basophils Absolute Auto 0.04 K/uL (0.00-0.30); Basophils Percent Auto 0.8 % (0.0-3.0); Eosinophils Absolute Auto 0.01 K/uL (0.00-0.50); Eosinophils Percent Auto 0.2 % (0.0-7.0); Hematocrit 28.9 % (37.0-53.0); Hemoglobin* 8.9 gm/dL (13.5-17.5); Immature Granulocytes Abs Auto 0.01 K/uL (0.00-0.30); Immature Granulocytes Pct Auto 0.2 %; Lymphocytes Percent Auto 16.9 % (20-44); Mean Corpuscular HGB Conc 31 gm/dL (32-36); Mean Corpuscular Hemoglobin 27 pg (26-34); Mean Corpuscular Volume 88 fL (80-100); Monocytes Percent Auto 14.3 % (0.0-11.0); Neutrophils Absolute Auto 3.27 K/uL (1.7-7.0); Neutrophils Percent Auto 67.6 % (42.0-72.0); Platelet Count* 191 K/uL (140-440); RDW Coefficient of Variation % 14.4 % (11.5-15.5); Red Blood Count 3.27 m/uL (4.30-5.90); White Blood Count* 4.84 K/uL (4.50-11.00)
[2023-05-01 18:32] LABS: Slide Review Reflex No
[2023-05-01 18:48] LABS: Chloride* 98 mmol/L (96-114)
[2023-05-01 18:49] LABS: Albumin* 3.8 g/dL (3.3-5.0); Potassium* 3.4 mmol/L (3.6-5.1); Sodium* 135 mmol/L (135-149)
[2023-05-01 18:51] LABS: Creatinine* 1.8 mg/dL (0.5-1.5); Est. Creatinine Clearance* 29.07; Estimated Glomerular Filt Rate 37 ml/min
[2023-05-01 18:52] LABS: Alanine Aminotransferase* 406 U/L (4-50); Alkaline Phosphatase* 109 U/L (40-150); Aspartate Amino Transferase* 409 U/L (12-35); Bilirubin Direct* 0.6 mg/dL (0.0-0.5); Bilirubin Total* 1.5 mg/dL (0.1-1.5); Blood Urea Nitrogen* 29 mg/dL (7-30); Carbon Dioxide* 24 mmol/L (20-32); Glucose* 143 mg/dL (60-115); Total Protein* 7.3 g/dL (6.0-8.3)
[2023-05-01 18:53] LABS: Calcium* 8.2 mg/dL (8.4-10.6)
[2023-05-01 18:58] LABS: Ethanol* < 0.01 % (0.01-0.03)
[2023-05-01 19:02] LABS: NT Pro B Type NatriureticPept* 27500 pg/mL
[2023-05-01 19:06] LABS: PCR FLU A Negative PCR FLU A (Negative); PCR FLU B Negative PCR FLU B (Negative); PCR RSV Negative PCR RSV (Negative)
--- NOTE | 2023-05-01 19:08 | CRLHL7_ITS ---
For Patients: As a result of the Century Cures Act, medical imaging exams and procedure reports are released immediately into your electronic medical record. You may view this report before your referring provider. If you have questions, please contact your health care provider. Indication: Abnormal liver function tests Technique: Sonography of the right upper quadrant was performed Comparison: None Findings: The gallbladder is surgically absent. Due to body habitus factors, the liver is poorly seen. As visualized, there is no gross abnormality in terms of echogenicity, mass or biliary ductal dilation. The common duct was not identified. Impression: Limited examination as above. Dictated by Savage Rosa MD @ 05/01/2023 9:00:01 PM (Electronically Signed)
[2023-05-01 19:14] LABS: SARS PCR* Negative SARS-CoV-2 (Negative)
[2023-05-01 19:24] LABS: Appearance Urine Clear (Clear); Bilirubin Urine Negative (Negative); Blood Urine 3+ (Negative); Color Urine Amber (Yellow); Glucose Urine Negative (Negative); Ketones Urine Negative (Negative); Leukocyte Esterase Urine 1+ (Negative); Nitrite Urine Negative (Negative); Protein Urine 2+ (Negative); Specific Gravity Urine >= 1.030 (1.000-1.030); pH Urine 5.5 (5.0-8.5)
[2023-05-01 19:39] LABS: Bacteria Urine Few; Squamous Epithelial Cell Urine Few (None-Few); WBC Urine 25-50 (0-5)
[2023-05-01 19:40] LABS: Fine Granular Casts Urine Few
[2023-05-01] MEDS: FUROSEMIDE 40 MG TABLET PO (21:10)
[2023-05-01 21:11] VITALS: BP 100/68; PULSE 78; RESP 16; TEMP 36.2
== END 2023-05-01 21:12 | disposition home or self-care (01) ==
PROVIDERS: Emergency Provider Family Medicine
DX: N39.0 Urinary tract infection, site not specified (principal); I50.9 Heart failure, unspecified
CPT/HCPCS: 36415; 71045; 76705; 80048; 80076; 81001; 82077; 83880; 84443; 85025; 86140; 87086; 87631; 99284; 99285; A9270; J7030

== ENCOUNTER 2023-05-08 13:54 | Outpatient (CLI) | payer MEDICARE, BC, SELFPAY | END 2023-05-08 13:55 | disposition home or self-care (01) | LOC: NFLDREF 13:55 | PROVIDERS: Visit Provider Internal Medicine | DX: I50.9 Heart failure, unspecified (principal); R53.83 Other fatigue | CPT/HCPCS: 80053 ==

== ENCOUNTER 2023-06-04 15:46 | Observation (INO) | payer OTHER, SELFPAY ==
[2023-06-04] VITALS (22 sets, daily range): BP systolic 83–104; BP diastolic 52–73; PULSE 62–94; RESP 16; TEMP 36.1–36.5; O2SAT 90–99; BMI 25.1; BMI 24.3
--- NOTE | 2023-06-04 16:32 | ED.GENADULT ---
HPI - General Adult General Time Seen by Provider: 16:32 Date Seen: 06/04/23 Chief complaint: Unspecified Complaint, Adult Stated complaint: hardtime swallowing Time Seen by Provider: 06/04/23 16:30 Source: patient and RN notes reviewed Mode of arrival: ambulatory Limitations: no limitations History of Present Illness HPI narrative: This 83-year-old male is sent over from echo to be further evaluated. He was having an echo done today, son brought him to the ER. He is residing at home with his with home healthcare. There is also a resident care associate there. He is fallen multiple times recently. He has no complaints of pain at this point to me but did note that his tailbone hurt when sitting down. His son noted that he saw skin tear when he was changing into the gown for the echo on his left upper arm, is probably about 2-day-old. His son stops in daily. They have a program where they are getting meals, son will also cook for them. He notes that his dad has diminished appetite. He feels that he is choking at times eating and swallowing. Does wonder if he is aspirating at times. He feels he is more dizzy. Prior to going in reviewed with them that his AST and ALT were elevated in April, unclear if this is been followed up. This certainly needs to be rechecked. I also did review that his blood pressure has been lower when he has been in the last few times. Verbal report is that he has a lower ejection fraction on this current echo, will see if we can get a preliminary or formal report soon. Patient states he really has no idea what is going on here. On discussion with his son, it is unclear whether it is felt he is safe to return home or not. He was in on May 01 to the ER for sleeping more, not eating and breathing difficulty. Was found have congestive heart failure. I see at that visit his AST and ALT were in the 400s, C-reactive protein was elevated at 7, proBNP was 98148, he did have a normal TSH. We will be repeating labs in comparing. Unclear if the liver functions have been followed up. He does have underlying atrial fibrillation reported. Related Data Home Medications ?Medication ?Instructions ?Recorded ?Confirmed aspirin 81 mg tablet,delayed 81 mg PO DAILY 05/01/22 06/08/23 release sertraline 50 mg tablet 50 mg PO DAILY 05/01/22 06/08/23 tamsulosin 0.4 mg capsule 0.4 mg PO DAILY 05/01/22 06/08/23 Previous Rx's ?Medication ?Instructions ?Recorded furosemide 40 mg tablet 40 mg PO DAILY CHF #30 tabs 05/08/23 fentanyl 12 mcg/hr transdermal 1 patch transdermal Q72H 15 days 06/11/23 patch #5 ea Allergies Allergy/AdvReac Type Severity Reaction Status Date / Time No Known Drug Allergies Allergy Verified 06/07/23 09:31 Review of Systems Status of ROS: Reports: 6 or more systems reviewed and unremarkable except as noted in History and below [facility] Medical History (Updated 06/12/23 @ 00:01 by Background Daemon) Anemia ?D64.9 - Anemia, unspecified (ICD-10) Palliative care encounter ?Z51.5 - Encounter for palliative care (ICD-10) Frequent falls ?R29.6 - Repeated falls (ICD-10) Cardiogenic shock ?R57.0 - Cardiogenic shock (ICD-10) Non-Hodgkin lymphoma ?C85.90 - Non-Hodgkin lymphoma, unspecified, unspecified site (ICD-10) GERD (gastroesophageal reflux disease) ?K21.9 - Gastro-esophageal reflux disease without esophagitis (ICD-10) Dementia ?F03.90 - Unspecified dementia, unspecified severity, without behavioral disturbance, psychotic disturbance, mood disturbance, and anxiety (ICD-10) Atrial fibrillation ?I48.91 - Unspecified atrial fibrillation (ICD-10) Bronchitis ?J40 - Bronchitis, not specified as acute or chronic (ICD-10) CHF (congestive heart failure) ?I50.9 - Heart failure, unspecified (ICD-10) B-cell lymphoma ?C85.10 - Unspecified B-cell lymphoma, unspecified site (ICD-10) Diabetes ?E11.9 - Type 2 diabetes mellitus without complications (ICD-10) Hypothyroidism ?E03.9 - Hypothyroidism, unspecified (ICD-10) Hypertension ?I10 - Essential (primary) hypertension (ICD-10) CVA (cerebral vascular accident) ?I63.9 - Cerebral infarction, unspecified (ICD-10) Atrial flutter ?I48.92 - Unspecified atrial flutter (ICD-10) Social History (Updated 06/04/23 @ 21:13 by Mani Zepeda MD) Narrative: He lives in [place] with his . Son, Romel, lives nearby. Romel and his are healthcare power of technical administrator. Code status is DNR. He is a nonsmoker. What is your current living situation?: unable to answer Problems where you live: unable to answer Problems where you live details: pt now on comfort cares, was living in apartment with spouse 'Jose', no known issues per pt's family other than pt's need for higher level of cares and now on comfort cares, pt very drowsy and unable to answer questions, quickly resumes sleep In the past 12 months, utilities in danger of being shut off: unable to answer In past 12 months, lack of transportation kept you from medical appts, meetings, work, or getting things needed for daily living: unable to answer In the past 12 mos, have been you worried that your food would run out before you had money to buy more?: unable to answer In the past 12 mos, the food you bought just didn't last and you didn't have money to buy more?: unable to answer Highest level of school completed/degree received: don't know Smoking Status: Never smoker Do you use any of these nicotine containing products: None Second hand tobacco smoke exposure: No How often do you have a drink containing alcohol: monthly or less Alcohol type details: pt's family states pt had a couple beers Q month How often do you have six or more drinks on one occasion: Never AUDIT-C Alcohol total score: 1 Non-prescribed substance use: denies use Non-prescribed substance use details: pt's family denies pt use of substance Caffeine: Yes (black coffee daily per family) How often does anyone, including family, friends and others, physically hurt you: unable to answer How often does anyone, including family, friends and others, insult or talk down to you: unable to answer How often does anyone, including family, friends and others, threaten you with harm: unable to answer How often does anyone, including family, friends and others, scream or curse at you: unable to answer service: Yes Exam Const: Vital Signs, click to edit/add: Vital Signs - 24 hr 06/04/23 15:54 06/04/23 18:22 06/04/23 18:41 Temperature 97.7 F Pulse Rate 77 Pulse Rate [Pulse Oximeter] 88 Pulse Rate [orthos tatic lying Pulse Oximeter] 68 Pulse Rate [orthos tatic sitting Puls e Oximeter] 85 Pulse Rate [orthos tatic standing Pul se Oximeter] 86 Respiratory Rate 16 Blood Pressure 99/73 Blood Pressure [Ri ght Upper Arm] 99/64 Blood Pressure [or thostatic lying Ri ght Arm] 96/68 Blood Pressure [or thostatic sitting Right Arm] 102/66 Blood Pressure [or thostatic standing Right Arm] 84/52 L Pulse Oximetry 98 93 Oxygen Delivery Me thod Room Air Frail and slender 83-year-old male but alert and interactive, lying in the bed in exam room 6. Sclera clear, extraocular muscles intact. Pupils appear round normal. Symmetrical facial function. Oropharynx somewhat dry mucosa. Speech sounds normal. I do not appreciate any hoarseness. No visible traumatic changes on his scalp or head noted. Neck without midline tenderness, supple, no masses, no thyromegaly masses or nodules, no cervical adenopathy. Lungs with decreased air entry left base, maybe some fine crackles at the right base but overall clear outside of the diminished left base. CV regular currently, has low holosystolic murmur heard, can hear it throughout the precordium. Abdomen is thin, soft, not distended, no organomegaly, completely not tender. He has about 2 to 3+ pitting edema at least 2/[address] up his lower extremities. Documenting provider has reviewed patient's vital signs: yes Course Course ED Course: This is a patient on Eliquis with recurrent falls, on amiodarone with elevated LFTs, recent C reactive protein thought to be due to UTI when he was in in April. He is having increased weakness, falls. We need to head CT, will get pelvic imaging with x-ray. He will also get a chest x-ray as there is decreased breath sounds at the left base, could be recurrent CHF with pleural effusion. Son is talking about concerns for choking or aspiration which could be contributed to by prior stroke and increasing weakness of the musculature. Reviewed with his son that this should be evaluated with of swallow evaluation but this is not done out of the ER. Will get a full complement of labs, have him on pulse oximetry, get EKG. He could have multifactorial reasons for many of his symptoms. Will also get nurses to do orthostatic vitals. Reevaluation(s) Time of Reevaluation #1: 20:24 Reevaluation #1: Did speak with patient and then his son independently. Dr. Zepeda the hospitalist was down here as well as I had been reviewing this case with him already. The patient was found to be hypokalemic with potassium of 2.6. Did take in 50 mEq of the oral effervescent potassium. His son states he did get that down okay. We did review his low ejection fraction, evidence of clinical congestive heart failure on examination but lower blood pressures. Overall intravascularly he does appear to be dry. This starts to become very tenuous and difficulty balancing act to manage. On discussion of son's wishes, he wants his dad to have the best care possible. It sounds as if he would like him in of facility where he would get more care. It is his mom that is resisting this. At this time, plan is for the hospitalist to place him in for the weakness, hypokalemia, congestive heart failure. Overall his blood pressures are running lower and when he went to standing blood pressure went to 84/52 from a lying of 96/68, pulse only went up 3 beats from 83-86, likely suppressed from the metoprolol. Vital Signs Vital signs: Initial Vital Signs Temperature 97.7 F 06/04/23 15:54 Temperature Source Oral 06/04/23 15:54 Pulse Rate 88 06/04/23 15:54 Pulse Rhythm Regular 06/04/23 15:54 Pulse Strength 3+ Normal 06/04/23 15:54 Respiratory Rate 16 06/04/23 15:54 Blood Pressure 99/64 06/04/23 15:54 Blood Pressure Mean 75 06/04/23 15:54 Blood Pressure Position Sitting 06/04/23 15:54 Pulse Oximetry 98 06/04/23 15:54 Oxygen Delivery Method Room Air 06/04/23 15:54 Vital Signs Temperature 97.7 F 06/04/23 15:54 Pulse Rate 88 06/04/23 15:54 Respiratory Rate 16 06/04/23 15:54 Blood Pressure 99/64 06/04/23 15:54 Pulse Oximetry 98 06/04/23 15:54 Oxygen Delivery Method Room Air 06/04/23 15:54 Temperature 98 F 06/06/23 20:38 Pulse Rate 100 06/07/23 07:00 Respiratory Rate 22 06/07/23 07:00 Blood Pressure 94/69 06/06/23 20:38 Pulse Oximetry 94 06/06/23 20:38 Oxygen Delivery Method Room Air 06/06/23 20:38 Medical Decision Making Lab Data Lab results reviewed: Yes I reviewed the patient's lab results Labs: Lab Results 06/04/23 06/04/23 06/04/23 Range/Units 17:21 18:49 18:49 WBC 5.05 (4.50-11.00) K/uL RBC 3.32 L (4.30-5.90) m/uL Hgb 8.6 L (13.5-17.5) gm/dL Hct 27.7 L (37.0-53.0) % MCV 83 (80-100) fL MCH 26 (26-34) pg MCHC 31 L (32-36) gm/dL RDW Coeff of Kurt 17.0 H (11.5-15.5) % Plt Count 149 (140-440) K/uL Neut % (Auto) 76.8 H (42.0-72.0) % Lymph % (Auto) 11.7 L (20-44) % [place] % (Auto) 9.1 (0.0-11.0) % Eos % (Auto) 0.4 (0.0-7.0) % Baso % (Auto) 0.6 (0.0-3.0) % Neut # (Auto) 3.90 (1.7-7.0) K/uL Lymph # (Auto) 0.60 L (0.90-2.90) K/uL [place] # (Auto) 0.50 (0.00-0.90) K/UL Eos # (Auto) 0.02 (0.00-0.50) K/uL Baso # (Auto) 0.03 (0.00-0.30) K/uL Abs Immat Gran (auto) 0.07 (0.00-0.30) K/uL Imm/Tot Granulo (auto) 1.4 % Sodium 135 (135-149) mmol/L Potassium 2.6 L* (3.6-5.1) mmol/L Chloride 94 L (96-114) mmol/L Carbon Dioxide 27 (20-32) mmol/L Anion Gap 14 (7-15) mEq/L BUN 51 H (7-30) mg/dL Creatinine 2.2 H (0.5-1.5) mg/dL Estimated Creat Clear 23.79 Estimated GFR 29 ml/min Glucose 174 H (60-115) mg/dL Lactate 3.0 H (0.5-1.9) mmol/L Calcium 8.7 (8.4-10.6) mg/dL Magnesium 1.7 (1.5-2.6) mg/dL Total Bilirubin 1.9 H (0.1-1.5) mg/dL Direct Bilirubin 0.8 H (0.0-0.5) mg/dL AST 49 H (12-35) U/L ALT 32 (4-50) U/L Alkaline Phosphatase 78 (40-150) U/L Troponin I 0.03 (0.01-0.04) ng/mL C-Reactive Protein Cancelled 3.8 H NT-Pro-B Natriuret Pep 22205 pg/mL Total Protein 7.3 (6.0-8.3) g/dL Albumin 3.7 (3.3-5.0) g/dL SARS-CoV-2 (PCR) Negative SARS-CoV-2 (Negative) Influenza Type A (PCR) Negative PCR FLU A (Negative) Influenza Type B (PCR) Negative PCR FLU B (Negative) RSV (PCR) Negative PCR RSV (Negative) Imaging Data CT scan - head: Attestation: I have reviewed the pertinent imaging results. Radiologist's impression: Patient: MAG PIZARRO Facility:?[facility] Patient ID:?[id number] Site Patient ID:?[id number]. Site :?[id number] Study:?CT Head WITHOUT-06/04/2023 6:11:39 PM Ordering Physician:Tanner Casanova Final Report: Indication : Trauma. Technique : CT of the brain without intravenous contrast. Comparison: MR brain and CT head 02/03/2022. Findings: No acute blurring of the richard-white differentiation. There is no intracranial hemorrhage. The ventricles are proportionate to the cerebral sulci. The 4th ventricle is midline. Basal cisterns appear patent. No abnormal extra-axial fluid collection identified. Moderate parenchymal volume loss. There is moderate patchy periventricular hypodensity, favored to represent chronic ischemic microvascular disease. Chronic left thalamic infarct. There is no intracranial mass, mass effect or midline shift identified. No depressed calvarial fracture. Impression: 1. No acute intracranial process. 2. Moderate chronic ischemic microvascular disease. 3. Small chronic lacunar infarct of the left thalamus. Please note that all CT scans at this facility use dose modulation, iterative reconstruction, and/or weight-based dosing when appropriate to reduce radiation dose to as low as reasonably achievable. Dictated by Maninder Lugo MD @ 06/04/2023 7:39:23 PM (Electronic Signature) Chest x-ray: Attestation: I have reviewed the pertinent imaging results. My impression: Did compared to an old portable chest x-ray, has left hemidiaphragm elevation. Await Radiology over-read. Radiologist's impression: Patient: MAG PIZARRO Facility:?[facility] Patient ID:?[id number] Site Patient ID:?[id number]. Site :?[id number] Study:?XRay Chest 1 VIEW-06/04/2023 6:12:23 PM Ordering Physician:Tanner Casanova Final Report: INDICATION: Falls, pain. TECHNIQUE: Chest 1 views. COMPARISON: May 01, 2023. FINDINGS: Cardiovascular and mediastinum: Stable heart size and vasculature. Right chest wall port in similar position. Lungs and pleural spaces: Elevation of the left hemidiaphragm with lower lobe atelectasis. Stable prominent interstitium. No sign of large pleural effusion. No pneumothorax. Bones and soft tissues: No significant findings. IMPRESSION: Persistent elevation of the left hemidiaphragm with lower lobe atelectasis. Stable prominent interstitium, possibly mild pulmonary edema. No acute findings and no significant changes from the prior exam. Dictated by Mark Cevlalos MD @ 06/04/2023 7:49:47 PM (Electronic Signature) XR pelvis: Attestation: I have reviewed the pertinent imaging results. My impression: I see no acute fracture on my preliminary review of this pelvic film. Radiologist's impression: Patient: MAG PIZARRO Facility:?[facility] Patient ID:?[id number] Site Patient ID:?[id number]. Site :?[id number] Study:?XRay Pelvis 1 VIEW-06/04/2023 6:12:09 PM Ordering Physician:Tanner Casanova Final Report: Indication: Trauma. Technique: Pelvis, 1 views. Comparison: None. Findings/Impression: Bones: Left femoral intertrochanteric mike and nail without hardware complication. Alignment is normal. No displaced fractures or bone lesions. Joint spaces: Unremarkable. Soft tissues: Unremarkable. Dictated by Mark Cevallos MD @ 06/04/2023 7:48:04 PM (Electronic Signature) ECG Data Attestation: I personally reviewed and interpreted this ECG as follows: (Sinus rhythm with first-degree AV block, 88 beats per minute. Do see PAC possibly. Left bundle branch block. QT corrected 546 milliseconds.) Prior ECG tracings: not available for review Critical Care Time Critical Care Time Critical Care Time: No Discharge Plan Discharge Clinical Impression: CHF (congestive heart failure), Difficulty in swallowing, Weakness, Hypokalemia Patient Disposition: Admitted As Observation Activity Level: Activity as Tolerated Discharge Diet: Regular
--- NOTE | 2023-06-04 16:43 | CRLHL7_ITS ---
For Patients: As a result of the Century Cures Act, medical imaging exams and procedure reports are released immediately into your electronic medical record. You may view this report before your referring provider. If you have questions, please contact your health care provider. Indication: Trauma. Technique: Pelvis, 1 views. Comparison: None. Findings/Impression: Bones: Left femoral intertrochanteric mike and nail without hardware complication. Alignment is normal. No displaced fractures or bone lesions. Joint spaces: Unremarkable. Soft tissues: Unremarkable. Dictated by Mark Cevallos MD @ 06/04/2023 7:48:04 PM (Electronically Signed)
--- NOTE | 2023-06-04 16:44 | CRLHL7_ITS ---
For Patients: As a result of the Cures Act, medical imaging exams and procedure reports are released immediately into your electronic medical record. You may view this report before your referring provider. If you have questions, please contact your health care provider. INDICATION: Falls, pain. TECHNIQUE: Chest 1 views. COMPARISON: May 01, 2023. FINDINGS: Cardiovascular and mediastinum: Stable heart size and vasculature. Right chest wall port in similar position. Lungs and pleural spaces: Elevation of the left hemidiaphragm with lower lobe atelectasis. Stable prominent interstitium. No sign of large pleural effusion. No pneumothorax. Bones and soft tissues: No significant findings. IMPRESSION: Persistent elevation of the left hemidiaphragm with lower lobe atelectasis. Stable prominent interstitium, possibly mild pulmonary edema. No acute findings and no significant changes from the prior exam. Dictated by Mark Cevallos MD @ 06/04/2023 7:49:47 PM (Electronically Signed)
--- NOTE | 2023-06-04 16:46 | CRLHL7_ITS ---
For Patients: As a result of the Century Cures Act, medical imaging exams and procedure reports are released immediately into your electronic medical record. You may view this report before your referring provider. If you have questions, please contact your health care provider. Indication : Trauma. Technique : CT of the brain without intravenous contrast. Comparison: MR brain and CT head 02/03/2022. Findings: No acute blurring of the richard-white differentiation. There is no intracranial hemorrhage. The ventricles are proportionate to the cerebral sulci. The 4th ventricle is midline. Basal cisterns appear patent. No abnormal extra-axial fluid collection identified. Moderate parenchymal volume loss. There is moderate patchy periventricular hypodensity, favored to represent chronic ischemic microvascular disease. Chronic left thalamic infarct. There is no intracranial mass, mass effect or midline shift identified. No depressed calvarial fracture. Impression: 1. No acute intracranial process. 2. Moderate chronic ischemic microvascular disease. 3. Small chronic lacunar infarct of the left thalamus. Please note that all CT scans at this facility use dose modulation, iterative reconstruction, and/or weight-based dosing when appropriate to reduce radiation dose to as low as reasonably achievable. Dictated by Maninder Lugo MD @ 06/04/2023 7:39:23 PM (Electronically Signed)
[2023-06-04 19:18] LABS: Albumin* 3.7 g/dL (3.3-5.0); Chloride* 94 mmol/L (96-114)
[2023-06-04 19:19] LABS: Sodium* 135 mmol/L (135-149)
[2023-06-04 19:21] LABS: Basophils Absolute Auto 0.03 K/uL (0.00-0.30); Basophils Percent Auto 0.6 % (0.0-3.0); Creatinine* 2.2 mg/dL (0.5-1.5); Eosinophils Absolute Auto 0.02 K/uL (0.00-0.50); Eosinophils Percent Auto 0.4 % (0.0-7.0); Est. Creatinine Clearance* 23.79; Estimated Glomerular Filt Rate 29 ml/min; Hematocrit 27.7 % (37.0-53.0); Hemoglobin* 8.6 gm/dL (13.5-17.5); Immature Granulocytes Abs Auto 0.07 K/uL (0.00-0.30); Immature Granulocytes Pct Auto 1.4 %; Lymphocytes Percent Auto 11.7 % (20-44); Mean Corpuscular HGB Conc 31 gm/dL (32-36); Mean Corpuscular Hemoglobin 26 pg (26-34); Mean Corpuscular Volume 83 fL (80-100); Monocytes Percent Auto 9.1 % (0.0-11.0); Neutrophils Percent Auto 76.8 % (42.0-72.0); Platelet Count* 149 K/uL (140-440); Red Blood Count 3.32 m/uL (4.30-5.90); White Blood Count* 5.05 K/uL (4.50-11.00)
[2023-06-04 19:22] LABS: Alanine Aminotransferase* 32 U/L (4-50); Alkaline Phosphatase* 78 U/L (40-150); Anion Gap 14 mEq/L (7-15); Aspartate Amino Transferase* 49 U/L (12-35); Bilirubin Direct* 0.8 mg/dL (0.0-0.5); Bilirubin Total* 1.9 mg/dL (0.1-1.5); Blood Urea Nitrogen* 51 mg/dL (7-30); Calcium* 8.7 mg/dL (8.4-10.6); Carbon Dioxide* 27 mmol/L (20-32); Glucose* 174 mg/dL (60-115); Magnesium* 1.7 mg/dL (1.5-2.6); Slide Review Reflex No; Total Protein* 7.3 g/dL (6.0-8.3)
[2023-06-04 19:25] LABS: C Reactive Protein* 3.8 mg/dL (0.5-1.0); Potassium* 2.6 mmol/L (3.6-5.1)
[2023-06-04 19:33] LABS: Troponin I* 0.03 ng/mL (0.01-0.04)
[2023-06-04] MEDS: POTASSIUM BICARB 25 MEQ EFFERVESCENT TAB 50 MEQ PO ×2 (19:42→22:16)
[2023-06-04 19:46] LABS: PCR FLU A Negative PCR FLU A (Negative); PCR FLU B Negative PCR FLU B (Negative); PCR RSV Negative PCR RSV (Negative); SARS PCR* Negative SARS-CoV-2 (Negative)
[2023-06-04 19:47] LABS: NT Pro B Type NatriureticPept* 33300 pg/mL
--- NOTE | 2023-06-04 20:46 | ED.NURSE ---
Nurse to nurse report given to Howard. Patient going to room 249
--- NOTE | 2023-06-04 21:01 | PM.IMHP1 ---
Hospitalist- H&P: HPI History of Present Illness Date Seen: 06/04/23 Chief complaint: hardtime swallowing Narrative: Neel German is a 83 year old male with heart failure with reduced ejection fraction, coronary artery disease status post bypass, stage 4 kidney disease, non-Hodgkin's lymphoma, dementia, diabetes, stroke presents to the emergency room with increasing problems with trouble swallowing, increasing falls, worsening orthostatic lightheadedness. History is primarily obtained from the medical record and from his son. Patient has had ongoing decline especially since his stroke in January of 2022. In the last couple months this has been getting much worse. He has been seen in emergency rooms in the past month for heart failure and urinary tract infection. In the last week he has had increasing falls, almost daily. His only significant injury was to his left arm where he has a laceration and abrasion. He has not been using a walker or cane. He has been eating and drinking poorly and when he does eat or drink he coughs and sometimes coughs output he is eating. He appears to have trouble with swallowing. He has been eating quite poorly. He has not had shortness of breath or chest pain. He does not think that he has lost consciousness or had syncope when he falls. He does have chronic lower extremity edema. He does not use compression stockings. He reports being compliant with his medications. A nurse from the [facility] sets up his medications in a box that sets an alarm to remind him. The administration of the medications occurs at 11:00 a.m., 2:00 p.m. and 8:00 p.m.. His son thinks that he is pretty good about getting his medications. Review of Systems Narrative: Due to dementia patient is unable to give significant history of recent events or past medical history. His son is not aware of problems except multiple concerns outlined above. [facility] Medical History (Updated 06/04/23 @ 21:32 by Mani Zepeda MD) Anemia ?D64.9 - Anemia, unspecified (ICD-10) Palliative care encounter ?Z51.5 - Encounter for palliative care (ICD-10) Frequent falls ?R29.6 - Repeated falls (ICD-10) Cardiogenic shock ?R57.0 - Cardiogenic shock (ICD-10) Hypokalemia ?E87.6 - Hypokalemia (ICD-10) Non-Hodgkin lymphoma ?C85.90 - Non-Hodgkin lymphoma, unspecified, unspecified site (ICD-10) GERD (gastroesophageal reflux disease) ?K21.9 - Gastro-esophageal reflux disease without esophagitis (ICD-10) Dementia ?F03.90 - Unspecified dementia, unspecified severity, without behavioral disturbance, psychotic disturbance, mood disturbance, and anxiety (ICD-10) Atrial fibrillation ?I48.91 - Unspecified atrial fibrillation (ICD-10) Bronchitis ?J40 - Bronchitis, not specified as acute or chronic (ICD-10) CHF (congestive heart failure) ?I50.9 - Heart failure, unspecified (ICD-10) B-cell lymphoma ?C85.10 - Unspecified B-cell lymphoma, unspecified site (ICD-10) Diabetes ?E11.9 - Type 2 diabetes mellitus without complications (ICD-10) Hypothyroidism ?E03.9 - Hypothyroidism, unspecified (ICD-10) Hypertension ?I10 - Essential (primary) hypertension (ICD-10) CVA (cerebral vascular accident) ?I63.9 - Cerebral infarction, unspecified (ICD-10) Atrial flutter ?I48.92 - Unspecified atrial flutter (ICD-10) Social History (Updated 06/04/23 @ 21:13 by Mani Zepeda MD) Narrative: He lives in [place] with his . Son, Romel, lives nearby. Romel and his are healthcare power of employment attorney. Code status is DNR. He is a nonsmoker. Smoking Status: Never smoker Do you use any of these nicotine containing products: None Second hand tobacco smoke exposure: No How often do you have a drink containing alcohol: 2-4 times a month How often do you have six or more drinks on one occasion: Never AUDIT-C Alcohol total score: 2 Non-prescribed substance use: denies use service: Yes Meds Home Medications and Allergies Home Medications Medication Instructions Recorded Confirmed Type B-complex with vitamin C 1 tab PO DAILY 05/01/22 05/18/23 History amiodarone 200 mg tablet 100 mg PO DAILY 05/01/22 05/18/23 History apixaban 2.5 mg tablet (Eliquis) 2.5 mg PO BID 05/01/22 05/18/23 History ascorbic acid (vitamin C) 500 mg 500 mg PO DAILY 05/01/22 05/18/23 History capsule aspirin 81 mg tablet,delayed 81 mg PO DAILY 05/01/22 05/18/23 History release atorvastatin 80 mg tablet 80 mg PO QPM 05/01/22 05/18/23 History cholecalciferol (vitamin D3) 25 25 mcg PO DAILY 05/01/22 05/18/23 History mcg (1,000 unit) capsule levothyroxine 100 mcg capsule 100 mcg PO DAILY 05/01/22 05/18/23 History melatonin 3 mg capsule 3 mg PO HS PRN 05/01/22 05/18/23 History metoprolol succinate 25 mg 12.5 mg PO DAILY 05/01/22 05/18/23 History tablet,extended release 24 hr multivitamin 1 tab PO DAILY 05/01/22 05/18/23 History pantoprazole 40 mg tablet,delayed 40 mg PO DAILY 05/01/22 05/18/23 History release sertraline 50 mg tablet 50 mg PO DAILY 05/01/22 05/18/23 History tamsulosin 0.4 mg capsule 0.4 mg PO DAILY 05/01/22 05/18/23 History vitamin E mixed 400 unit capsule 400 unit 05/01/22 05/18/23 History Allergies Allergy/AdvReac Type Severity Reaction Status Date / Time No Known Drug Allergies Allergy Verified 06/04/23 15:54 Exam Narrative: Exam Narrative: He is alert and oriented to being in the hospital. Unable to tell me why he is here or any recent medical problems. He appears in no obvious distress. Quite pale in appearance. Extremities are cool to touch. Very sluggish capillary refill. Oropharynx with dry mucous membranes. Neck is supple without jugular venous distension or mass. Respirations with a rare basilar crackle. No wheezing. Cardiovascular: S1, S2, 2/6 systolic murmur. Relatively regular rhythm. Abdomen: Bowel sounds active. Abdomen is soft without tenderness. External genitalia normal. Extremities with 2+ edema to the knees. Feet are cool to touch with sluggish capillary refill and weak pedal pulses. He moves all 4 extremities well. No facial asymmetry. Pupils are equal round reactive to light. Extraocular movements are full. No lateralizing weakness. Const: Vital Signs, click to edit/add: Vital Signs - 24 hr 06/04/23 15:54 06/04/23 18:22 06/04/23 18:41 Temperature 97.7 F Pulse Rate 77 Pulse Rate [Pulse Oximeter] 88 Pulse Rate [orthos tatic lying Pulse Oximeter] 68 Pulse Rate [orthos tatic sitting Puls e Oximeter] 85 Pulse Rate [orthos tatic standing Pul se Oximeter] 86 Respiratory Rate 16 Blood Pressure 99/73 Blood Pressure [Ri ght Upper Arm] 99/64 Blood Pressure [or thostatic lying Ri ght Arm] 96/68 Blood Pressure [or thostatic sitting Right Arm] 102/66 Blood Pressure [or thostatic standing Right Arm] 84/52 L Pulse Oximetry 98 93 Oxygen Delivery Me thod Room Air Documenting provider has reviewed patient's vital signs: yes Hospitalist - H&P: Result Labs Labs: Short CBC 06/04/23 Range/Units 18:49 WBC 5.05 (4.50-11.00) K/uL Hgb 8.6 L (13.5-17.5) gm/dL Hct 27.7 L (37.0-53.0) % Plt Count 149 (140-440) K/uL BMP 06/04/23 18:49 Sodium 135 Potassium 2.6 L* Chloride 94 L Carbon Dioxide 27 BUN 51 H Creatinine 2.2 H Glucose 174 H Calcium 8.7 Cardiac Enzymes 06/04/23 Range/Units 18:49 Troponin I 0.03 (0.01-0.04) ng/mL Liver Function 06/04/23 Range/Units 18:49 Total Bilirubin 1.9 H (0.1-1.5) mg/dL Direct Bilirubin 0.8 H (0.0-0.5) mg/dL AST 49 H (12-35) U/L ALT 32 (4-50) U/L Alkaline Phosphatase 78 (40-150) U/L Albumin 3.7 (3.3-5.0) g/dL Imaging CT scan - head: Radiologist's impression: Indication : Trauma. Technique : CT of the brain without intravenous contrast. Comparison: MR brain and CT head 02/03/2022. Findings: No acute blurring of the richard-white differentiation. There is no intracranial hemorrhage. The ventricles are proportionate to the cerebral sulci. The 4th ventricle is midline. Basal cisterns appear patent. No abnormal extra-axial fluid collection identified. Moderate parenchymal volume loss. There is moderate patchy periventricular hypodensity, favored to represent chronic ischemic microvascular disease. Chronic left thalamic infarct. There is no intracranial mass, mass effect or midline shift identified. No depressed calvarial fracture. Impression: 1. No acute intracranial process. 2. Moderate chronic ischemic microvascular disease. 3. Small chronic lacunar infarct of the left thalamus. Chest x-ray: Radiologist's impression: INDICATION: Falls, pain. TECHNIQUE: Chest 1 views. COMPARISON: May 01, 2023. FINDINGS: Cardiovascular and mediastinum: Stable heart size and vasculature. Right chest wall port in similar position. Lungs and pleural spaces: Elevation of the left hemidiaphragm with lower lobe atelectasis. Stable prominent interstitium. No sign of large pleural effusion. No pneumothorax. Bones and soft tissues: No significant findings. IMPRESSION: Persistent elevation of the left hemidiaphragm with lower lobe atelectasis. Stable prominent interstitium, possibly mild pulmonary edema. No acute findings and no significant changes from the prior exam. Assessment and Plan Assessment and plan (1) Cardiogenic shock: Problem comment: Patient has clinical and laboratory evidence for poor perfusion with declining renal function, hypotension, elevated lactate, fatigue, malaise. Echo shows severe and worsening left ventricular ejection fraction of 20-25%. Moderately severe valvular disease. Medical management of this appears to be very difficult. Because his perfusion appears to be worse and more serious and his volume overload I will hold his furosemide. Status: Acute (2) Frequent falls: Problem comment: Therapy to evaluate and treat Status: Acute (3) Weakness: Problem comment: Generalized, moderately severe. Therapy to assess functional status Status: Acute (4) Difficulty in swallowing: Problem comment: Has had problems with swallowing related to his lymphoma in 2015 involving his hypopharynx and also with his stroke in January of 2022. Obtain swallowing evaluation Status: Acute (5) Hypokalemia: Problem comment: Replace and follow Status: Acute (6) Diabetes: Problem comment: Unknown level of control. Patient does not monitor blood sugars Status: Acute (7) Dementia: Problem comment: Reassess ability to function semi independently in the home Status: Acute (8) CHF (congestive heart failure): Problem comment: Heart failure with reduced ejection fraction. Echocardiogram 06/04/2023 shows ejection fraction of 20-25%, severe global reduction in systolic function. Moderately reduced right ventricular function. Moderate mitral regurg, tricuspid regurg, pulmonary regurg. Status: Acute (9) Non-Hodgkin lymphoma: Problem comment: Diffuse large B-cell lymphoma diagnosed 10 years ago and treated with Rituxan and chop. 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 Treated with Rituxan and bendamustine. No obvious evidence for recurrence at this time. Status: Acute (10) Palliative care encounter: Problem comment: With patient's severe multiorgan failure, heart, kidney, brain and very poor functional status discussion was had with the patient and his son about goals of care. Also trying to decide if he is safe to live at home with his . Status: Acute (11) Anemia: Problem comment: Chronic and slowly progressive. Cause is unclear. Will check for evidence of GI bleeding. Trend hemoglobin Status: Acute Plan Patient is admitted to the hospital for evaluation management of cardiogenic shock and multiple associated morbidities. Total time spent today is 90 minutes, 60 minutes in coordination of care discussing with patient son and other providers ongoing evaluation management of cardiogenic shock/heart failure/weakness/falls/dementia and goals of care
[2023-06-04] MEDS: APIXABAN 5 MG TABLET 2.5 MG PO (22:17)
[2023-06-04] MEDS: SODIUM CHLORIDE 0.9 % (FLUSH) 10 ML SYRINGE 5 ML IVF (22:21)
[2023-06-05] VITALS (10 sets, daily range): BP systolic 75–95; BP diastolic 57–66; PULSE 80–93; RESP 16–18; TEMP 35.8–36.8; O2SAT 92–97
--- NOTE | 2023-06-05 05:41 | PC.NURSE ---
Shift note: Pt arrived at the floor at 2120 on admission bed from ED. Conscious, alert but oriented to self and person. Pt was accompanied by son who stated that pt had multiple falls at home and increasing in weakness. On examination, nurse found abrasion o the left forearm which according to the son was as a results of the falls. Bilateral pedal edema of about 2+. MILE applied after education about the needs of it was given. Pt denied any pain. Bp was low within 90s systolic but son said that was his normal. Pt is able to turn and reposition in bed but needs direction and encouragement. Ambulate with A1, walker and GB. Pt had difficulty getting urine. Bladder scan done 2x at 0010and 0410 were 125 and 177 respectively. Pt had port to the right shoulder which was accessed from the ED. Bread toast, putin and apple juice given at 2200 after pt complained of hunger.
[2023-06-05] MEDS: LEVOTHYROXINE 100 MCG TABLET PO (06:15)
[2023-06-05 06:42] LABS: Lactate* 3.9 mmol/L (0.5-1.9)
[2023-06-05 06:43] LABS: Basophils Percent Auto 0.7 % (0.0-3.0); Eosinophils Percent Auto 0.7 % (0.0-7.0); Hematocrit 28.9 % (37.0-53.0); Hemoglobin* 8.9 gm/dL (13.5-17.5); Immature Granulocytes Pct Auto 0.2 %; Lymphocytes Percent Auto 11.7 % (20-44); Mean Corpuscular HGB Conc 31 gm/dL (32-36); Mean Corpuscular Hemoglobin 26 pg (26-34); Mean Corpuscular Volume 83 fL (80-100); Monocytes Percent Auto 11.9 % (0.0-11.0); Neutrophils Percent Auto 74.8 % (42.0-72.0); Platelet Count* 159 K/uL (140-440); RDW Coefficient of Variation % 17.1 % (11.5-15.5); Red Blood Count 3.49 m/uL (4.30-5.90); White Blood Count* 4.28 K/uL (4.50-11.00)
[2023-06-05 06:58] LABS: Slide Review Reflex No
[2023-06-05 07:02] LABS: Albumin* 3.6 g/dL (3.3-5.0); Chloride* 93 mmol/L (96-114); Sodium* 133 mmol/L (135-149)
[2023-06-05 07:03] LABS: Potassium* 3.7 mmol/L (3.6-5.1)
[2023-06-05 07:05] LABS: Creatinine* 2.4 mg/dL (0.5-1.5); Estimated Glomerular Filt Rate 26 ml/min
[2023-06-05 07:06] LABS: Alanine Aminotransferase* 35 U/L (4-50); Alkaline Phosphatase* 75 U/L (40-150); Anion Gap 10 mEq/L (7-15); Aspartate Amino Transferase* 58 U/L (12-35); Bilirubin Direct* 0.9 mg/dL (0.0-0.5); Blood Urea Nitrogen* 55 mg/dL (7-30); Calcium* 8.9 mg/dL (8.4-10.6); Carbon Dioxide* 30 mmol/L (20-32); Glucose* 175 mg/dL (60-115); Total Protein* 6.8 g/dL (6.0-8.3)
[2023-06-05 07:08] LABS: C Reactive Protein* 4.4 mg/dL (0.5-1.0)
[2023-06-05] MEDS: SERTRALINE 50 MG TABLET PO (09:05)
[2023-06-05] MEDS: AMIODARONE 200 MG TABLET 100 MG PO (09:06)
[2023-06-05] MEDS: ASCORBIC ACID 500 MG TABLET PO (09:06)
[2023-06-05] MEDS: OMEPRAZOLE 20 MG CAPSULE DR 40 MG PO (09:06)
[2023-06-05] MEDS: ASPIRIN 81 MG TABLET EC PO (09:07)
[2023-06-05] MEDS: MULTIVITAMIN/MINERALS 1 TABLET 1 TAB PO (09:07)
[2023-06-05] MEDS: TAMSULOSIN HCL 0.4 MG CAPSULE PO (09:07)
[2023-06-05] MEDS: APIXABAN 5 MG TABLET 2.5 MG PO ×2 (09:08→19:56)
[2023-06-05] MEDS: POTASSIUM CHLORIDE 10 MEQ CAPSULE ER 20 MEQ PO ×2 (09:08→17:01)
[2023-06-05] MEDS: METOPROLOL SUCCINATE (XL) 25 MG TAB 12.5 MG PO (09:09)
[2023-06-05] MEDS: SODIUM CHLORIDE 0.9 % (FLUSH) 10 ML SYRINGE 5 ML IVF ×2 (09:09→23:42)
--- NOTE | 2023-06-05 09:50 | P.IMPN_ITS ---
Progress Note: A&P Assessment and plan (1) Cardiogenic shock: Problem details: MAP holding. meds being adjusted. renal function is holding; lactate increasing. symptoms are ongoing. Hospice appropriate. Status: Acute (2) CHF (congestive heart failure): Problem details: Acute on Chronic. Systolic. NYH class 3-4. Reduced ejection fraction. Echocardiogram 06/04/2023 shows ejection fraction of 20-25%, severe global reduction in systolic function. Moderately reduced right ventricular function. Moderate mitral regurg, tricuspid regurg, pulmonary regurg (all worse than previous) -hospice appropriate. Status: Acute (3) Frequent falls: Problem details: Therapy to evaluate and treat poor cardiac output likely contributing Status: Acute (4) Weakness: Problem details: Generalized, moderately severe. Therapy to assess functional status Status: Acute (5) Difficulty in swallowing: Problem details: Has had problems with swallowing related to his lymphoma in 2014 involving his hypopharynx and also with his stroke in January of 2022. Obtain swallowing evaluation if patient desires. Status: Acute (6) Hypokalemia: Problem details: Replace and follow - improved 06/04 Status: Acute (7) Diabetes: Problem details: hold metformin. A1C pending. Status: Acute (8) Dementia: Problem details: Reassess ability to function semi independently in the home Status: Acute (9) Non-Hodgkin lymphoma: Problem details: Diffuse large B-cell lymphoma diagnosed 10 years ago and treated with Rituxan and chop. 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 Treated with Rituxan and bendamustine. No obvious evidence for recurrence at this time. Status: Acute (10) Anemia: Problem details: Chronic and slowly progressive. Cause is unclear. Will check for evidence of GI bleeding. Trend hemoglobin Status: Acute Subjective Date Seen: 06/05/23 Interval history: Daily Progress Note - Hospital Medicine Day #: 2 CC: weakness OVERNIGHT UPDATES FROM STAFF & MED, LAB, IMAGING UPDATES stable over night. MAP is >70 lactate is still elevated; increased renal function is not much off baseline Transaminitis present hypokalemia improved troponin initially ok in the ED anemia stable. Presenting symptoms: problems with trouble swallowing, increasing falls, worsening orthostatic lightheadedness are not noticeable with being in the hospital bed or chair. swallowing study ordered/pending. RN note: Shift note: Pt arrived at the floor at 2120 on admission bed from ED. Conscious, alert but oriented to self and person. Pt was accompanied by son who stated that pt had multiple falls at home and increasing in weakness. On examination, nurse found abrasion o the left forearm which according to the son was as a results of the falls. Bilateral pedal edema of about 2+. MILE applied after education about the needs of it was given. Pt denied any pain. Bp was low within 90s systolic but son said that was his normal. Pt is able to turn and reposition in bed but needs direction and encouragement. Ambulate with A1, walker and GB. Pt had difficulty getting urine. Bladder scan done 2x at 0010and 0410 were 125 and 177 respectively. Pt had port to the right shoulder which was accessed from the ED. Bread toast, pudding and apple juice given at 2200 after pt complained of hunger. January 2022 Final Impressions: 1. Normal LV size, borderline wall thickness, moderately reduced global systolic function with an estimated EF of 25 - 30%. 2. Right ventricular cavity size is normal, global systolic RV function is mildly reduced. 3. Mildly enlarged left atrium. 4. The aortic valve is trileaflet and sclerotic, no stenosis and trivial regurgitation. 5. The mitral valve is sclerotic, moderate mitral regurgitation. Mobile filamentous echodensity on ventricular side of mitral jerson in subvalvular apparatus (most consistent with chordal remnant and unchanged from 09/16/19 study). 6. Moderate pulumonary regurgitation. 7. Moderate tricuspid regurgitation with estimated RVSP of 22 mmHg plus the RA pressure. May 2023 Final Impressions: 1. Normal LV size, normal wall thickness, severely reduced global systolic function with an estimated EF of 20 - 25%. 2. Severely enlarged left atrium. 3. Right ventricular cavity size is mildly enlarged, global systolic RV function is moderately reduced. 4. The aortic valve is sclerotic, no stenosis and no regurgitation. 5. The mitral valve is sclerotic, moderate mitral regurgitation. MV chordal remnant noted. 6. Moderate tricuspid regurgitation. 7. Moderate pulumonary regurgitation. 8. Normal estimated pulmonary pressures by tricuspid regurgitation velocity and right atrial pressure (30 mmHg plus RAP). Comparison Compared to prior exam of 02/04/2022: - The left ventricular function has decreased. - The right ventricular systolic function has decreased. - RV size has increased. Afebrile Blood pressures have been soft but stable: 94/66 (MAP 75), 95/61 (72), 93/64 (74) Pulse 80s and 90s. Sinus. Respiratory rate 16, unlabored Pulse ox 91-93. Room air CBC reflects a stable anemia. Mild neutropenia. Platelets are normal. Potassium is up to 3.7, sodium is 133. Renal function reflects a small mild APRIL. His baseline creatinine runs 1.9-2.3 since 2019. 2.4 this morning. BUN is increased to 55. Lactates increasing from 3-3.9 [place] [address], April of 2023 was 19,200. In June of 2020 it was 2600. CRP is bumped up mildly Objective: Vitals: see above Lungs: Clear. Cardiac: S1S2.11/20 WALDO. Disposition/Potential discharge - Likely to return to previous living situation. Today I spent 50minutes seeing the patient, reviewing Expanse and EPIC notes/diagnostics, discussing the care plan with our care time that includes social work, PT/OT, pharmacy, RT, fpc and documenting my impressions and plan in the medical record. ACP first 30 mins [id number] I went over options for care during this current hospitalization and explained the difference between palliative care and hospice care. I described the likelihood of returning to previous functioning and what the options are going forward for care. Pt would like to hear about VA benefits as it relates to Hospice. Called and updated Patsy LIZ. Exam Const: Vital Signs, click to edit/add: Vital Signs - 24 hr 06/04/23 15:54 06/04/23 18:22 06/04/23 18:23 Temperature 97.7 F Pulse Rate 77 85 Pulse Rate [Left P ulse Oximeter] Pulse Rate [Pulse Oximeter] 88 Pulse Rate [orthos tatic lying Pulse Oximeter] Pulse Rate [orthos tatic sitting Puls e Oximeter] Pulse Rate [orthos tatic standing Pul se Oximeter] Respiratory Rate 16 Blood Pressure 99/73 Blood Pressure [Ri ght Arm] Blood Pressure [Ri ght Upper Arm] 99/64 Blood Pressure [or thostatic lying Ri ght Arm] Blood Pressure [or thostatic sitting Right Arm] Blood Pressure [or thostatic standing Right Arm] Pulse Oximetry 98 93 95 Oxygen Delivery Me thod Room Air 06/04/23 18:30 06/04/23 18:31 06/04/23 18:35 Temperature Pulse Rate 86 87 83 Pulse Rate [Left P ulse Oximeter] Pulse Rate [Pulse Oximeter] Pulse Rate [orthos tatic lying Pulse Oximeter] Pulse Rate [orthos tatic sitting Puls e Oximeter] Pulse Rate [orthos tatic standing Pul se Oximeter] Respiratory Rate Blood Pressure 96/68 102/66 Blood Pressure [Ri ght Arm] Blood Pressure [Ri ght Upper Arm] Blood Pressure [or thostatic lying Ri ght Arm] Blood Pressure [or thostatic sitting Right Arm] Blood Pressure [or thostatic standing Right Arm] Pulse Oximetry 95 92 90 Oxygen Delivery Me thod 06/04/23 18:39 06/04/23 18:41 06/04/23 18:56 Temperature Pulse Rate 87 85 Pulse Rate [Left P ulse Oximeter] Pulse Rate [Pulse Oximeter] Pulse Rate [orthos tatic lying Pulse Oximeter] 68 Pulse Rate [orthos tatic sitting Puls e Oximeter] 85 Pulse Rate [orthos tatic standing Pul se Oximeter] 86 Respiratory Rate Blood Pressure 103/69 Blood Pressure [Ri ght Arm] Blood Pressure [Ri ght Upper Arm] Blood Pressure [or thostatic lying Ri ght Arm] 96/68 Blood Pressure [or thostatic sitting Right Arm] 102/66 Blood Pressure [or thostatic standing Right Arm] 84/52 L Pulse Oximetry 94 99 Oxygen Delivery Me thod 06/04/23 19:00 06/04/23 19:02 06/04/23 19:30 Temperature Pulse Rate 86 86 82 Pulse Rate [Left P ulse Oximeter] Pulse Rate [Pulse Oximeter] Pulse Rate [orthos tatic lying Pulse Oximeter] Pulse Rate [orthos tatic sitting Puls e Oximeter] Pulse Rate [orthos tatic standing Pul se Oximeter] Respiratory Rate Blood Pressure 100/70 Blood Pressure [Ri ght Arm] Blood Pressure [Ri ght Upper Arm] Blood Pressure [or thostatic lying Ri ght Arm] Blood Pressure [or thostatic sitting Right Arm] Blood Pressure [or thostatic standing Right Arm] Pulse Oximetry 98 96 94 Oxygen Delivery Me thod 06/04/23 19:32 06/04/23 20:00 06/04/23 20:01 Temperature Pulse Rate 86 85 84 Pulse Rate [Left P ulse Oximeter] Pulse Rate [Pulse Oximeter] Pulse Rate [orthos tatic lying Pulse Oximeter] Pulse Rate [orthos tatic sitting Puls e Oximeter] Pulse Rate [orthos tatic standing Pul se Oximeter] Respiratory Rate Blood Pressure 104/71 92/65 Blood Pressure [Ri ght Arm] Blood Pressure [Ri ght Upper Arm] Blood Pressure [or thostatic lying Ri ght Arm] Blood Pressure [or thostatic sitting Right Arm] Blood Pressure [or thostatic standing Right Arm] Pulse Oximetry 90 96 97 Oxygen Delivery Me thod 06/04/23 20:30 06/04/23 20:32 06/04/23 21:00 Temperature Pulse Rate 88 88 90 Pulse Rate [Left P ulse Oximeter] Pulse Rate [Pulse Oximeter] Pulse Rate [orthos tatic lying Pulse Oximeter] Pulse Rate [orthos tatic sitting Puls e Oximeter] Pulse Rate [orthos tatic standing Pul se Oximeter] Respiratory Rate Blood Pressure 83/60 L Blood Pressure [Ri ght Arm] Blood Pressure [Ri ght Upper Arm] Blood Pressure [or thostatic lying Ri ght Arm] Blood Pressure [or thostatic sitting Right Arm] Blood Pressure [or thostatic standing Right Arm] Pulse Oximetry 98 96 95 Oxygen Delivery Me thod 06/04/23 21:01 06/04/23 21:23 06/04/23 22:25 Temperature 96.9 F L Pulse Rate 91 Pulse Rate [Left P ulse Oximeter] 62 Pulse Rate [Pulse Oximeter] Pulse Rate [orthos tatic lying Pulse Oximeter] 87 Pulse Rate [orthos tatic sitting Puls e Oximeter] 86 Pulse Rate [orthos tatic standing Pul se Oximeter] 89 Respiratory Rate 16 Blood Pressure 96/69 Blood Pressure [Ri ght Arm] 86/60 L Blood Pressure [Ri ght Upper Arm] Blood Pressure [or thostatic lying Ri ght Arm] 95/68 Blood Pressure [or thostatic sitting Right Arm] 97/63 Blood Pressure [or thostatic standing Right Arm] 88/61 L Pulse Oximetry 96 96 Oxygen Delivery Me thod Room Air 06/04/23 23:00 06/04/23 23:00 06/04/23 23:00 Temperature 97 F L Pulse Rate 94 Pulse Rate [Left P ulse Oximeter] 62 88 Pulse Rate [Pulse Oximeter] Pulse Rate [orthos tatic lying Pulse Oximeter] Pulse Rate [orthos tatic sitting Puls e Oximeter] Pulse Rate [orthos tatic standing Pul se Oximeter] Respiratory Rate 16 Blood Pressure Blood Pressure [Ri ght Arm] 93/64 Blood Pressure [Ri ght Upper Arm] Blood Pressure [or thostatic lying Ri ght Arm] Blood Pressure [or thostatic sitting Right Arm] Blood Pressure [or thostatic standing Right Arm] Pulse Oximetry 91 Oxygen Delivery Me thod Room Air 06/05/23 03:00 06/05/23 08:01 06/05/23 08:20 Temperature 96.4 F L 98.2 F Pulse Rate 90 Pulse Rate [Left P ulse Oximeter] 93 91 Pulse Rate [Pulse Oximeter] Pulse Rate [orthos tatic lying Pulse Oximeter] Pulse Rate [orthos tatic sitting Puls e Oximeter] Pulse Rate [orthos tatic standing Pul se Oximeter] Respiratory Rate 16 16 Blood Pressure Blood Pressure [Ri ght Arm] 95/61 94/66 Blood Pressure [Ri ght Upper Arm] Blood Pressure [or thostatic lying Ri ght Arm] Blood Pressure [or thostatic sitting Right Arm] Blood Pressure [or thostatic standing Right Arm] Pulse Oximetry 93 92 Oxygen Delivery Me thod Room Air Room Air Labs Labs: Laboratory Results - last 24 hr 06/04/23 06/04/23 06/04/23 17:21 18:49 18:49 WBC 5.05 RBC 3.32 L Hgb 8.6 L Hct 27.7 L MCV 83 MCH 26 MCHC 31 L RDW Coeff of Kurt 17.0 H Plt Count 149 Neut % (Auto) 76.8 H Lymph % (Auto) 11.7 L [place] % (Auto) 9.1 Eos % (Auto) 0.4 Baso % (Auto) 0.6 Neut # (Auto) 3.90 Lymph # (Auto) 0.60 L [place] # (Auto) 0.50 Eos # (Auto) 0.02 Baso # (Auto) 0.03 Abs Immat Gran (auto) 0.07 Imm/Tot Granulo (auto) 1.4 Sodium 135 Potassium 2.6 L* Chloride 94 L Carbon Dioxide 27 Anion Gap 14 BUN 51 H Creatinine 2.2 H Estimated Creat Clear 23.79 Estimated GFR 29 Glucose 174 H Lactate 3.0 H Calcium 8.7 Magnesium 1.7 Total Bilirubin 1.9 H Direct Bilirubin 0.8 H AST 49 H ALT 32 Alkaline Phosphatase 78 Troponin I 0.03 C-Reactive Protein Cancelled 3.8 H NT-Pro-B Natriuret Pep 08920 Total Protein 7.3 Albumin 3.7 SARS-CoV-2 (PCR) Negative SARS-CoV-2 Influenza Type A (PCR) Negative PCR FLU A Influenza Type B (PCR) Negative PCR FLU B RSV (PCR) Negative PCR RSV 06/05/23 05:47 WBC 4.28 L RBC 3.49 L Hgb 8.9 L Hct 28.9 L MCV 83 MCH 26 MCHC 31 L RDW Coeff of Kurt 17.1 H Plt Count 159 Neut % (Auto) 74.8 H Lymph % (Auto) 11.7 L [place] % (Auto) 11.9 H Eos % (Auto) 0.7 Baso % (Auto) 0.7 Neut # (Auto) 3.20 Lymph # (Auto) 0.50 L [place] # (Auto) 0.50 Eos # (Auto) 0.00 Baso # (Auto) 0.00 Abs Immat Gran (auto) 0.00 Imm/Tot Granulo (auto) 0.2 Sodium 133 L Potassium 3.7 Chloride 93 L Carbon Dioxide 30 Anion Gap 10 BUN 55 H Creatinine 2.4 H Estimated Creat Clear 21.80 Estimated GFR 26 Glucose 175 H Lactate 3.9 H Calcium 8.9 Magnesium Total Bilirubin 2.0 H Direct Bilirubin 0.9 H AST 58 H ALT 35 Alkaline Phosphatase 75 Troponin I C-Reactive Protein 4.4 H NT-Pro-B Natriuret Pep Total Protein 6.8 Albumin 3.6 SARS-CoV-2 (PCR) Influenza Type A (PCR) Influenza Type B (PCR) RSV (PCR)
[2023-06-05] MEDS: 0.9 % SODIUM CHLORIDE 500 ML 500 ML IV (11:15)
[2023-06-05] MEDS: ACETAMINOPHEN 325 MG TABLET 650 MG PO ×2 (11:23→19:56)
--- NOTE | 2023-06-05 12:46 | REH.OT ---
OT to hold evaluation today until after family conference to decide on goals of care.
[2023-06-05 13:03] LABS: Fecal Occult Blood* Positive (Negative)
[2023-06-05 15:50] LABS: Iron* 28 ug/dL (49-181)
[2023-06-05 15:59] LABS: Percent Iron Saturation 7 % (20-50); Total Iron Binding Capacity 429 ug/dL (261-462)
--- NOTE | 2023-06-05 16:52 | PC.SOCIAL ---
Discharge planning- Met with pt's and children to discuss discharge plans. Family would like pt to go on hospice. Family is discussing this evening if they can meet pt's needs at home or they would like pt to go to SNF with hospice. Pt has a VA benefit that covers hospice, room and board. Pt also has Elderly Waiver. Recieved phone call from Pt's [facility] worker (Marixa) requesting an update. Provided update. Marixa would like to be kept informed of pt's discharge plans. This worker will follow up with pt's son and tomorrow morning. Faxed referral to [facility] and they declined due to no availability in [facility] at this time. Social work will continue to follow up as needed.
[2023-06-05] MEDS: ATORVASTATIN CALCIUM 40 MG TABLET PO (19:56)
[2023-06-05] MEDS: MELATONIN 3 MG TABLET PO (19:57)
--- NOTE | 2023-06-05 23:42 | PC.NURSE ---
Hypotensive 70's/50's and pt asymptomatic. Dr. Zepeda updated and spoke with family at bedside. Pt able to tolerate moving to his chair for supper and back to bed. Denies pain.
[2023-06-06 03:05] VITALS: BP 77/53; PULSE 80; RESP 20; TEMP 36.6; O2SAT 94
[2023-06-06] MEDS: HEPARIN 500 UNIT/5 ML SYRINGE IVF ×2 (06:06→18:50)
[2023-06-06] MEDS: LEVOTHYROXINE 100 MCG TABLET PO (06:06)
[2023-06-06 06:25] LABS: Hematocrit 25.4 % (37.0-53.0); Immature Granulocytes Pct Auto 0.2 %; Mean Corpuscular HGB Conc 31 gm/dL (32-36); Mean Corpuscular Hemoglobin 26 pg (26-34); Mean Corpuscular Volume 83 fL (80-100)
[2023-06-06 06:27] LABS: Slide Review Reflex No
[2023-06-06 06:28] LABS: Red Blood Count 3.06 m/uL (4.30-5.90); White Blood Count* 4.35 K/uL (4.50-11.00)
[2023-06-06 06:29] LABS: Basophils Percent Auto 0.9 % (0.0-3.0); Eosinophils Percent Auto 1.4 % (0.0-7.0); Hemoglobin* 7.9 gm/dL (13.5-17.5); Lymphocytes Percent Auto 18.9 % (20-44); Monocytes Percent Auto 16.3 % (0.0-11.0); Neutrophils Percent Auto 62.3 % (42.0-72.0); Platelet Count* 146 K/uL (140-440); RDW Coefficient of Variation % 17.3 % (11.5-15.5)
[2023-06-06 06:57] LABS: Chloride* 94 mmol/L (96-114); Sodium* 134 mmol/L (135-149)
[2023-06-06 06:58] LABS: Potassium* 4.1 mmol/L (3.6-5.1)
[2023-06-06 07:00] VITALS: BP 81/48; PULSE 81; RESP 20; TEMP 36.6; O2SAT 96
[2023-06-06 07:00] LABS: Anion Gap 12 mEq/L (7-15); Carbon Dioxide* 28 mmol/L (20-32); Creatinine* 3.4 mg/dL (0.5-1.5); Est. Creatinine Clearance* 15.39; Estimated Glomerular Filt Rate 17 ml/min
[2023-06-06 07:01] LABS: Blood Urea Nitrogen* 59 mg/dL (7-30); Calcium* 8.4 mg/dL (8.4-10.6); Glucose* 182 mg/dL (60-115)
--- NOTE | 2023-06-06 07:28 | P.IMPN_ITS ---
Progress Note: A&P Assessment and plan (1) Cardiogenic shock: Problem details: MAP decreasing. Hospice appropriate. comfort cares initiated Status: Acute (2) CHF (congestive heart failure): Problem details: Acute on Chronic. Systolic. NYH class 3-4. Reduced ejection fraction. Echocardiogram 06/04/2023 shows ejection fraction of 20-25%, severe global reduction in systolic function. Moderately reduced right ventricular function. Moderate mitral regurg, tricuspid regurg, pulmonary regurg (all worse than previous) -hospice appropriate. Status: Acute (3) Frequent falls: Problem details: Therapy to evaluate and treat poor cardiac output likely contributing Status: Acute (4) Weakness: Problem details: Generalized, moderately severe. Therapy to assess functional status Status: Acute (5) Difficulty in swallowing: Problem details: Has had problems with swallowing related to his lymphoma in 2014 involving his hypopharynx and also with his stroke in January of 2022. Obtain swallowing evaluation if patient desires. Status: Acute (6) Hypokalemia: Problem details: Replace and follow - improved 06/04 Status: Acute (7) Diabetes: Problem details: A1c 7.1. Holding metformin. Comfort care is initiated. Status: Acute (8) Dementia: Problem details: Reassess ability to function semi independently in the home Status: Acute (9) Non-Hodgkin lymphoma: Problem details: Diffuse large B-cell lymphoma diagnosed 10 years ago and treated with Rituxan and chop. 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 Treated with Rituxan and bendamustine. No obvious evidence for recurrence at this time. Status: Acute (10) Anemia: Problem details: Chronic and slowly progressive. -hospice appropriate Status: Acute Subjective Date Seen: 06/06/23 Interval history: Daily Progress Note - Hospital Medicine Day #: 3 CC: weakness RN: Hypotensive 70's/50's and pt asymptomatic. Dr. Zepeda updated and spoke with family at bedside. Pt able to tolerate moving to his chair for supper and back to bed. Denies pain. OVERNIGHT UPDATES FROM STAFF & MED, LAB, IMAGING UPDATES -anemia worse -MAP 61 -family and patient pursuing hospice for end stage CHF January 2022 Final Impressions: 1. Normal LV size, borderline wall thickness, moderately reduced global systolic function with an estimated EF of 25 - 30%. 2. Right ventricular cavity size is normal, global systolic RV function is mildly reduced. 3. Mildly enlarged left atrium. 4. The aortic valve is trileaflet and sclerotic, no stenosis and trivial regurgitation. 5. The mitral valve is sclerotic, moderate mitral regurgitation. Mobile filamentous echodensity on ventricular side of mitral jerson in subvalvular apparatus (most consistent with chordal remnant and unchanged from 09/16/19 study). 6. Moderate pulumonary regurgitation. 7. Moderate tricuspid regurgitation with estimated RVSP of 22 mmHg plus the RA pressure. May 2023 Final Impressions: 1. Normal LV size, normal wall thickness, severely reduced global systolic function with an estimated EF of 20 - 25%. 2. Severely enlarged left atrium. 3. Right ventricular cavity size is mildly enlarged, global systolic RV function is moderately reduced. 4. The aortic valve is sclerotic, no stenosis and no regurgitation. 5. The mitral valve is sclerotic, moderate mitral regurgitation. MV chordal remnant noted. 6. Moderate tricuspid regurgitation. 7. Moderate pulumonary regurgitation. 8. Normal estimated pulmonary pressures by tricuspid regurgitation velocity and right atrial pressure (30 mmHg plus RAP). Comparison Compared to prior exam of 02/04/2022: - The left ventricular function has decreased. - The right ventricular systolic function has decreased. - RV size has increased. Afebrile Blood pressures declining Pulse 80s and 90s. Sinus. Respiratory rate 16, unlabored Pulse ox 91-[place] [address], April of 2023 was 19,200. In June of 2020 it was 2600. Objective: Vitals: see above Lungs: Clear. Cardiac: S1S2.3/6 WALDO. Disposition/Potential discharge - Likely to return to previous living situation. Today I spent 50minutes seeing the patient, reviewing Expanse and EPIC notes/diagnostics, discussing the care plan with our care time that includes social work, PT/OT, pharmacy, RT, residential and documenting my impressions and plan in the medical record. ACP first 30 mins [id number] I went over options for care during this current hospitalization and explained the difference between palliative care and hospice care. I described the likelihood of returning to previous functioning and what the options are going forward for care. Pt would like to hear about VA benefits as it relates to Hospice. Called and updated Patsy LIZ. Exam Const: Vital Signs, click to edit/add: Vital Signs - 24 hr 06/05/23 08:01 06/05/23 08:20 06/05/23 11:13 Temperature 98.2 F 97.7 F Pulse Rate 90 Pulse Rate [Left P ulse Oximeter] 91 86 Respiratory Rate 16 18 Blood Pressure [Ri ght Arm] 94/66 84/63 L Pulse Oximetry 92 97 Oxygen Delivery Az thod Room Air Room Air 06/05/23 12:32 06/05/23 15:00 06/05/23 15:00 Temperature 97.2 F L Pulse Rate Pulse Rate [Left P ulse Oximeter] 85 85 Respiratory Rate 18 18 Blood Pressure [Ri ght Arm] 87/63 L 81/57 L Pulse Oximetry 96 Oxygen Delivery Az thod Room Air 06/05/23 15:00 06/05/23 17:05 06/05/23 17:30 Temperature Pulse Rate 81 Pulse Rate [Left P ulse Oximeter] 84 82 Respiratory Rate 18 18 Blood Pressure [Ri ght Arm] 75/57 L 77/60 L Pulse Oximetry 96 [facility] 06/05/23 19:00 06/05/23 23:30 06/05/23 23:30 Temperature 97.3 F L Pulse Rate 81 Pulse Rate [Left P ulse Oximeter] 80 81 Respiratory Rate 18 18 Blood Pressure [Ri ght Arm] 79/58 L Pulse Oximetry 95 Oxygen Delivery Az thod Room Air 06/05/23 23:30 06/06/23 03:05 Temperature 97.7 F 97.8 F Pulse Rate Pulse Rate [Left P ulse Oximeter] 80 80 Respiratory Rate 18 20 Blood Pressure [Ri ght Arm] 89/61 L 77/53 L Pulse Oximetry 93 94 Oxygen Delivery Az thod Room Air Room Air Labs Labs: Laboratory Results - last 24 hr 06/05/23 06/05/23 06/05/23 05:47 09:00 10:33 WBC RBC Hgb Hct MCV MCH MCHC RDW Coeff of Kurt Plt Count Neut % (Auto) Lymph % (Auto) [place] % (Auto) Eos % (Auto) Baso % (Auto) Neut # (Auto) Lymph # (Auto) [place] # (Auto) Eos # (Auto) Baso # (Auto) Abs Immat Gran (auto) Imm/Tot Granulo (auto) Sodium Potassium Chloride Carbon Dioxide Anion Gap BUN Creatinine Estimated Creat Clear Estimated GFR Glucose Hemoglobin A1c 7.10 H Calcium Iron 28 L TIBC 429 % Saturation 7 L Stool Occult Blood Lab Acknowledgement Test Added 06/05/23 06/06/23 12:39 05:50 WBC 4.35 L RBC 3.06 L Hgb 7.9 L* Hct 25.4 L MCV 83 MCH 26 MCHC 31 L RDW Coeff of Kurt 17.3 H Plt Count 146 Neut % (Auto) 62.3 Lymph % (Auto) 18.9 L [place] % (Auto) 16.3 H Eos % (Auto) 1.4 Baso % (Auto) 0.9 Neut # (Auto) 2.70 Lymph # (Auto) 0.80 L [place] # (Auto) 0.70 Eos # (Auto) 0.10 Baso # (Auto) 0.00 Abs Immat Gran (auto) 0.00 Imm/Tot Granulo (auto) 0.2 Sodium 134 L Potassium 4.1 Chloride 94 L Carbon Dioxide 28 Anion Gap 12 BUN 59 H Creatinine 3.4 H Estimated Creat Clear 15.39 Estimated GFR 17 Glucose 182 H Hemoglobin A1c Calcium 8.4 Iron TIBC % Saturation Stool Occult Blood Positive Lab Acknowledgement
--- NOTE | 2023-06-06 07:43 | PC.NURSE ---
Pt alert and oriented to self only. Pt denies pain, SOB, chest pain, light headedness, dizziness and N/V. Pt is up A1/2 with walker gait belt due to hypotension, MD aware. Pt slept throughout most of night. Night uneventful.
--- NOTE | 2023-06-06 09:24 | NUTR.NU ---
RDN with RN skin risk consult that nutrition is probably inadequate. RDN discussed with patient's RN. Plan is for patient to discharge on hospice. Not appropriate for any nutrition intervention at this time. RDN will continue to follow PRN.
[2023-06-06] MEDS: POTASSIUM CHLORIDE 10 MEQ CAPSULE ER 20 MEQ PO ×2 (09:28→18:50)
[2023-06-06] MEDS: AMIODARONE 200 MG TABLET 100 MG PO (09:29)
[2023-06-06] MEDS: OMEPRAZOLE 20 MG CAPSULE DR 40 MG PO (09:30)
[2023-06-06] MEDS: TAMSULOSIN HCL 0.4 MG CAPSULE PO (09:31)
[2023-06-06] MEDS: SERTRALINE 50 MG TABLET PO (09:31)
[2023-06-06] MEDS: fentaNYL 12 mcg/hr PATCH 1 PATCH TRANSDERMA (09:32)
[2023-06-06] MEDS: SODIUM CHLORIDE 0.9 % (FLUSH) 10 ML SYRINGE 5 ML IVF (09:37)
[2023-06-06] MEDS: FEXOFENADINE 180 MG TABLET PO (14:07)
--- NOTE | 2023-06-06 14:46 | PC.NURSE ---
END OF SHIFT NOTE: RESIDENT IS UP TO THE BATHROOM WITH RN AT THIS TIME USING WALKER AND GAIT BELT. RN DID PERFORM BLADDER SCAN AFTER LUNCH WITH PVR OF 48 ML. THIS WAS DONE STAFF TOILETED PATIENT THOUGH PATIENT UNABLE TO URINATE. FENTANYL PATCH PLACED TO REAR R SHOULDER THIS MORNING PER NEW ORDER. HE HAS BEEN DENYING PAIN WHEN ASKED WITH NO NONVERBAL INDICATIONS OF PAIN NOTED. COMFORT CARES IN PLACE. PATIENT SEEN BY MD TODAY. MD ALTMAN ALSO MET WITH FAMILY TO DISCUSS GOALS OF CARE. PORT TO RIGHT SIDE OF CHEST IN PLACE AND REMAINS PATENT WITH NO S/S OF INFECTION OBSERVED TO SURROUNDING AREA. PATIENT REFUSED BREAKFAST DESPITE STAFF ENCOURAGEMENT AND REAPPROACHING. HE DID EAT 90% FOOD INTAKE WITH LUNCH AFTER SON ARRIVED. PATIENT HAS BEEN ALERT WHEN SPOKEN TO THIS SHIFT. OLD SKIN TEARS PRESENT TO L ARM REMAIN OPEN TO AIR WITH NO WARMTH, EDEMA, REDNESS OR DRAINAGE OBSERVED UPON INSPECTION. FAMILY HAS BEEN VISITING MOST OF THE SHIFT.
[2023-06-06 15:30] VITALS: PULSE 81
--- NOTE | 2023-06-06 16:36 | PC.SOCIAL ---
Addendum entered by JANELL Elam 06/06/23 17:16: Follow up phone call placed to pt's son, Romel, at [phone]. Informed that this worker was leaving for the day. Romel informs that he has not been able to talk to all family members and will either leave a message this evening or call tomorrow morning. Original Note: Discharge planning- Met with pt's and pt's son (Romel) to discuss discharge plans. Pt's met with and made a decision that she would like pt to go to SNF with hospice in place. Provided a list of hospice agencies and family would like [facility] if they are able to service the SNF that is located. Family understands that there are no openings in [place] at local SNF's for pt. Family would like this worker to check with [facility] first. Received a phone call from Marixa at [facility]. Marixa informs that pt is open to waiver services and has active MA. Provided Marixa with an update. Marixa would like to be informed of discharge plans and can be reached at [phone]. Contacted the follow SNF's for possible LT placement. 1. [facility]- Phone call to Phil in admissions at [phone]. There are no open beds. 2. [facility] [place]- Phone call to Cleopatra in admissions at [phone]. Left a voicemail and faxed referral to [phone]. 3. [facility]- Phone call to Carolina in admissions at [phone]. There are openings. Faxed referral to [phone]. Phone call to Heidi Trejo at [facility] at [phone]. Discussed hospice services for pt. Informed that this worker is seeking placement for pt. Heidi informs that she would like the referral faxed to [facility] so they can begin entering information. Faxed referral to [phone]. Heidi would like to be updated on discharge plans. [facility] does provide service at the [facility]. Received a phone call from Carolina in admissions at [facility]. Carolina informs that they can accept pt for admission tomorrow (06/07) at 2:00 pm. Informed that this worker will follow up with family and provide her with an update. Phone call to pt's son (Romel) to provide update. Romel informs that [place] is too far away. Informed Romel that there are no openings in [place] or [place] in [place]. Informed the only closer option would be [facility] in [place]. Romel states they definitely do not want the [facility] in [place]. Informed that [place] would be the next closest facility to [place]. Romel would like to discuss with his family and will call this worker back with a decision. Romel states his mother does not drive and it's too far away. Romel informs that they toured at the [facility] previously and they don't believe they liked the facility. Social work will follow up as needed.
[2023-06-06 20:38] VITALS: BP 94/69; PULSE 68; RESP 16; TEMP 36.6; O2SAT 94
[2023-06-06 22:52] VITALS: PULSE 68; RESP 16
[2023-06-07] MEDS: HEPARIN 500 UNIT/5 ML SYRINGE IVF ×2 (05:56→13:07)
--- NOTE | 2023-06-07 06:30 | PC.NURSE ---
23-07: pleasant and cooperative. SBA with gb and walker to stand at bedside. Pt did not void this shift, bladder scanned for ~125mL. No c/o pain. Fentanyl patch to Right shoulder.
[2023-06-07 07:00] VITALS: PULSE 100; RESP 22
[2023-06-07] MEDS: POTASSIUM CHLORIDE 10 MEQ CAPSULE ER 20 MEQ PO (08:09)
[2023-06-07] MEDS: SERTRALINE 50 MG TABLET PO (08:53)
[2023-06-07] MEDS: OMEPRAZOLE 20 MG CAPSULE DR 40 MG PO (08:53)
[2023-06-07] MEDS: TAMSULOSIN HCL 0.4 MG CAPSULE PO (08:53)
[2023-06-07] MEDS: AMIODARONE 200 MG TABLET 100 MG PO (08:53)
--- NOTE | 2023-06-07 11:44 | PC.SOCIAL ---
Addendum entered by DOMINIC Cheung 06/07/23 12:40: Discharge orders were faxed to Hospice and [facility]. PAS completed and submitted. No further social work follow up is needed at this time. Original Note: Discharge planning: Spoke by phone with who confirms family decision for pt to go to [facility]. She is aware this will be scheduled for today. Called [facility] [phone] and spoke with admissions who confirms they domingo accept pt any time after 2:00 today. Called [facility] and spoke with Heidi who confirmed they can open pt to hospice at 3:[address] [facility] requested discharge orders be faxed to [facility] at [phone]. Per MD, pt meets criteria for non-emergency ambulance transport. Transport has been set up by nursing for between 1:00-1:30 today. Family aware of plans arranged.
[2023-06-07] MEDS: SODIUM CHLORIDE 0.9 % (FLUSH) 10 ML SYRINGE 5 ML IVF (13:07)
--- NOTE | 2023-06-07 13:24 | P.DS_ITS ---
DS: Providers Provider Date Seen: 06/07/23 Date of admission: 06/04/23 21:09 Primary care physician: Cleveland Borja MD Admitting Clinician: Mani Zepeda MD Consults: 06/04/23 20:48 Consult to Physical Therapy [CONS] Routine Comment: Reason(s) for PT Consult:: Evaluate and Treat Any Restrictions?:: No Restrictions Consult to Electrical Equipment Tester [CONS] Routine Comment: Reason for Consult:: Discharge Planning Needs 06/04/23 21:38 Consult to Physical Therapy [CONS] Urgent Comment: Reason(s) for PT Consult:: Evaluate and Treat Any Restrictions?:: No Restrictions Attending Physician on discharge: Mani Zepeda MD Date of Discharge: 06/07/23 DS: Diagnosis Discharge Diagnosis (1) Cardiogenic shock: Status: Acute Problem details: MAP decreasing. Hospice appropriate. comfort cares initiated (2) CHF (congestive heart failure): Status: Acute Problem details: Acute on Chronic. Systolic. NYH class 3-4. Reduced ejection fraction. Echocardiogram 06/04/2023 shows ejection fraction of 20-25%, severe global reduction in systolic function. Moderately reduced right ventricular function. Moderate mitral regurg, tricuspid regurg, pulmonary regurg (all worse than previous) -hospice appropriate. (3) Non-Hodgkin lymphoma: Status: Acute Problem details: Diffuse large B-cell lymphoma diagnosed 10 years ago and treated with Rituxan and chop. 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 Treated with Rituxan and bendamustine. No obvious evidence for recurrence at this time. (4) Dementia: Status: Acute Problem details: Reassess ability to function semi independently in the home (5) Weakness: Status: Acute Problem details: Generalized, moderately severe. Therapy to assess functional status (6) Frequent falls: Status: Acute Problem details: Therapy to evaluate and treat poor cardiac output likely contributing (7) Anemia: Status: Acute Problem details: Chronic and slowly progressive. -hospice appropriate DS: Summary Hospital Course Hospital Course: FINAL DIAGNOSIS/FOLLOW UP ISSUES: BRIEF HOSPITAL COURSE: Patient was admitted for 4 days. Synopsis of acute inpatient issues are outlined above. Chronic medical conditions with notable findings outlined above. Ultimately the patient elected, with family support, to pursue end of life care/Hospice given is cardiac dysfunction. DISCHARGE MEDICATIONS: See Reconciled list - SIGNIFICANT CHANGES: Hospice to manage Specific instructions to the patient and follow-up are outlined below. REVIEW OF SYSTEMS No new chest pain or dyspnea Pain controlled No voiding difficulties Tolerating diet challenge PHYSICAL EXAM: CONSTITUTIONAL: Ill-appearing, falls asleep easily VITAL SIGNS: see record. HEENT: Normocephalic, atraumatic. PERRL, EOMI, conjunctivae pink, no scleral icterus. Ears and nose externally normal. Pharynx normal. NECK: No JVD. No carotid bruit, no thyromegaly, no adenopathy. CHEST: Clear to auscultation bilaterally. HEART: S1 and S2. 3/6 systolic ejection murmur ABDOMEN: Soft, nontender. Normal bowel sounds. MUSCULOSKELETAL: No gross joint deformity or swelling. NEURO: Cranial nerves intact. Grossly intact. No asymmetric findings. SKIN: No rashes, petechiae, concerning changes PSYCHIATRIC: Mood euthymic. DISPOSITION: Hospice in [facility]; [facility] Time spent on discharge 37 minutes. Time Spent with Patient Time attestation: Total time spent providing and/or coordinating discharge services: Exam Const: Vital Signs, click to edit/add: Vital Signs - 24 hr 06/06/23 15:30 06/06/23 20:38 06/06/23 22:52 Temperature 98 F Pulse Rate [Bilate ral Radial] Pulse Rate [Left P ulse Oximeter] 81 68 68 Respiratory Rate 16 16 Blood Pressure [Ri ght Arm] 94/69 Pulse Oximetry 94 Oxygen Delivery Me thod Room Air 06/07/23 07:00 Temperature Pulse Rate [Bilate ral Radial] 100 Pulse Rate [Left P ulse Oximeter] Respiratory Rate 22 Blood Pressure [Ri ght Arm] Pulse Oximetry Oxygen Delivery Me thod Discharge Plan Discharge Disposition: [facility] Date of Admission: 06/04/23 21:09 Attending Provider on Discharge: Paige Bonilla Primary Care Provider: Cleveland Borja Discharge Medications: Continued furosemide 40 mg tablet 40 mg PO DAILY Qty: 30 3RF amiodarone 100 mg tablet 100 mg PO DAILY apixaban 5 mg tablet 2.5 mg PO BID atorvastatin 40 mg tablet 40 mg PO QHS vitamin B complex [B Complex-Vitamin B12] Tablet 1 tab PO DAILY calcium carbonate-vitamin D3 [Calcium 500 + D] 500 mg-5 mcg (200 unit) tablet 1 tab PO BID metformin 1,000 mg tablet 500 mg PO BIDWMEAL metoprolol tartrate 50 mg tablet 25 mg PO BID lisinopril 10 mg tablet 5 mg PO DAILY ascorbic acid (vitamin C) 500 mg capsule 500 mg PO DAILY aspirin 81 mg tablet,delayed release (DR/EC) 81 mg PO DAILY cholecalciferol (vitamin D3) 25 mcg (1,000 unit) capsule 25 mcg PO DAILY levothyroxine 100 mcg capsule 100 mcg PO DAILY melatonin 3 mg capsule 3 mg PO HS PRN multivitamin Tablet 1 tab PO DAILY sertraline 50 mg tablet 50 mg PO DAILY tamsulosin 0.4 mg capsule 0.4 mg PO DAILY Hold Instructions: unknown vitamin E mixed 400 unit capsule 400 unit PO DAILY Discharge Orders: Discharge Order (Routine); Ordered 06/07/23 Ordered By: Paige Bonilla Consulting provider completed their portion of the discharge: Yes Additional Instructions: home meds were listed as continue. He also has a fentanyl patch 12.5mcg that was started 06/06 at 1400. Hospice will order ongoing meds/therapies. Activity Level: Activity as Tolerated Discharge Diet: Regular Admit to: SNF Discharge Potential: Poor Length of Stay: <30 days Can use facility standing orders?: Yes Code Status: DNR/DNI TEDs: N/A Rehab Potential: Poor Hospice Evaluate and Admit: [facility] H[facility]ice to open 06/07 at 1500 Orders are good >30 days: Yes
--- NOTE | 2023-06-07 15:30 | PC.NURSE ---
Discharge; patient alert and oriented, arousable by name. Providing comfort cares per orders, patient denied pain. Family at bedside. Port de-accessed and heparin locked, port catheter intact. Discharge today at 1525 via non-emergent transport to hospice care in [place]. Accompanied by family. Discharge paperwork signed by spouse and verbalized understanding of discharge instructions.
== END 2023-06-07 15:25 ==
LOC: ED 20:29 → MEDSURG 21:12
PROVIDERS: Family Medicine; Admitting Provider Family Medicine; Emergency Provider Family Medicine; PCP Internal Medicine; Visit Provider Family Medicine
DX: I50.23 Acute on chronic systolic (congestive) heart failure (principal); E87.6 Hypokalemia; I95.9 Hypotension, unspecified; D64.9 Anemia, unspecified; R57.0 Cardiogenic shock; R13.10 Dysphagia, unspecified; M62.81 Muscle weakness (generalized); R74.02 Elevation of levels of lactic acid dehydrogenase [LDH]; I48.91 Unspecified atrial fibrillation; I42.2 Other hypertrophic cardiomyopathy; R29.6 Repeated falls; R53.81 Other malaise; R53.83 Other fatigue; I25.810 Atherosclerosis of coronary artery bypass graft(s) without angina pectoris; I13.0 Hypertensive heart and chronic kidney disease with heart failure and stage 1 through stage 4 chronic kidney disease, or unspecified chronic kidney disease; N18.4 Chronic kidney disease, stage 4 (severe); E11.22 Type 2 diabetes mellitus with diabetic chronic kidney disease; C85.90 Non-Hodgkin lymphoma, unspecified, unspecified site; I08.1 Rheumatic disorders of both mitral and tricuspid valves; E03.9 Hypothyroidism, unspecified; K21.9 Gastro-esophageal reflux disease without esophagitis; R60.0 Localized edema; R42 Dizziness and giddiness; F03.90 Unspecified dementia, unspecified severity, without behavioral disturbance, psychotic disturbance, mood disturbance, and anxiety; I44.7 Left bundle-branch block, unspecified; Z79.84 Long term (current) use of oral hypoglycemic drugs; Z79.4 Long term (current) use of insulin; Z79.01 Long term (current) use of anticoagulants; Z79.82 Long term (current) use of aspirin; Z86.79 Personal history of other diseases of the circulatory system; Z51.5 Encounter for palliative care
CPT/HCPCS: 36415; 51798; 70450; 71045; 72170; 80048; 80053; 80076; 81001; 82270; 82962; 83036; 83540; 83550; 83605; 83735; 83880; 84484; 85025; 86140; 87631; 93005; 93306; 94761; 95992; 96360; 96372; 97116; 97161; 97530; 99283; 99284; 99285; G0378; A9153; A9270; J1642; J7030; J7120

== ENCOUNTER 2023-06-07 15:25 | Outpatient (CLI) | payer MEDICARE, MEDICAID, BC, SELFPAY | END 2023-06-07 15:26 | disposition home or self-care (01) | LOC: AMB 06-22 23:54 | PROVIDERS: PCP Internal Medicine; Visit Provider Emergency Medicine | DX: R53.1 Weakness (principal) | CPT/HCPCS: A0425; A0428 ==

== ENCOUNTER 2023-06-07 19:20 | Inpatient (IN) | payer OTHER, SELFPAY ==
[2023-06-07 19:28] VITALS: BP 90/70; PULSE 95; RESP 16; TEMP 36.3; O2SAT 99; BMI 22.0
[2023-06-07 19:45] VITALS: O2SAT 99
--- NOTE | 2023-06-07 20:21 | ED.GENADULT ---
HPI - General Adult General Date Seen: 06/07/23 Chief complaint: Unspecified Complaint, Adult Stated complaint: placement issue Time Seen by Provider: 06/07/23 19:27 Source: family, EMS and old records reviewed Mode of arrival: EMS Limitations: no limitations History of Present Illness HPI narrative: Patient is an 83-year-old male who was admitted to the hospital recently with CHF, non-Hodgkin's lymphoma, anemia. By the end of his hospital stay decision had been made to pursue hospice care. He was discharged to a care facility in [place] today and there seems to have been a little bit of a discrepancy between what the family was told and the realities of the facility. Family says that they were told that there would be a bed, plenty of chairs, and that they could bring dogs and or alcohol if they wanted in order to ?celebrate. On arrival, they say that the room is shared with the sheet in the middle, there is no extra place for sleeping or sitting, they noted that hospice was supposed to come at 3:00 p.m. and did not show up, that no one at the facility seem to know anything about the patient and that there were no registered nurses there. Also, they say that the facility closes to visitors at 8:00 p.m.. Ultimately, they called 911 and asked that he be brought back here. Related Data Home Medications Medication Instructions Recorded Confirmed ascorbic acid (vitamin C) 500 mg 500 mg PO DAILY 05/01/22 06/05/23 capsule aspirin 81 mg tablet,delayed 81 mg PO DAILY 05/01/22 06/05/23 release cholecalciferol (vitamin D3) 25 25 mcg PO DAILY 05/01/22 06/05/23 mcg (1,000 unit) capsule levothyroxine 100 mcg capsule 100 mcg PO DAILY 05/01/22 06/05/23 melatonin 3 mg capsule 3 mg PO HS PRN 05/01/22 06/05/23 multivitamin 1 tab PO DAILY 05/01/22 06/05/23 sertraline 50 mg tablet 50 mg PO DAILY 05/01/22 06/05/23 tamsulosin 0.4 mg capsule 0.4 mg PO DAILY 05/01/22 06/05/23 vitamin E mixed 400 unit capsule 400 unit PO DAILY 05/01/22 06/05/23 amiodarone 100 mg tablet 100 mg PO DAILY 06/05/23 06/05/23 apixaban 5 mg tablet 2.5 mg PO BID 06/05/23 06/05/23 atorvastatin 40 mg tablet 40 mg PO QHS 06/05/23 06/05/23 calcium carbonate 500 mg-vitamin 1 tab PO BID 06/05/23 06/05/23 D3 5 mcg (200 unit) tablet (Calcium 500 + D) lisinopril 10 mg tablet 5 mg PO DAILY 06/05/23 06/05/23 metformin 1,000 mg tablet 500 mg PO BIDWMEAL 06/05/23 06/05/23 metoprolol tartrate 50 mg tablet 25 mg PO BID 06/05/23 06/05/23 vitamin B complex (B 1 tab PO DAILY 06/05/23 06/05/23 Complex-Vitamin B12 tablet) Previous Rx's Medication Instructions Recorded furosemide 40 mg tablet 40 mg PO DAILY CHF #30 tabs 05/08/23 Allergies Allergy/AdvReac Type Severity Reaction Status Date / Time No Known Drug Allergies Allergy Verified 06/07/23 09:31 [facility] Medical History (Updated 06/07/23 @ 20:25 by Shirley Valle MD) Anemia ?D64.9 - Anemia, unspecified (ICD-10) Palliative care encounter ?Z51.5 - Encounter for palliative care (ICD-10) Frequent falls ?R29.6 - Repeated falls (ICD-10) Cardiogenic shock ?R57.0 - Cardiogenic shock (ICD-10) Hypokalemia ?E87.6 - Hypokalemia (ICD-10) Non-Hodgkin lymphoma ?C85.90 - Non-Hodgkin lymphoma, unspecified, unspecified site (ICD-10) GERD (gastroesophageal reflux disease) ?K21.9 - Gastro-esophageal reflux disease without esophagitis (ICD-10) Dementia ?F03.90 - Unspecified dementia, unspecified severity, without behavioral disturbance, psychotic disturbance, mood disturbance, and anxiety (ICD-10) Atrial fibrillation ?I48.91 - Unspecified atrial fibrillation (ICD-10) Bronchitis ?J40 - Bronchitis, not specified as acute or chronic (ICD-10) CHF (congestive heart failure) ?I50.9 - Heart failure, unspecified (ICD-10) B-cell lymphoma ?C85.10 - Unspecified B-cell lymphoma, unspecified site (ICD-10) Diabetes ?E11.9 - Type 2 diabetes mellitus without complications (ICD-10) Hypothyroidism ?E03.9 - Hypothyroidism, unspecified (ICD-10) Hypertension ?I10 - Essential (primary) hypertension (ICD-10) CVA (cerebral vascular accident) ?I63.9 - Cerebral infarction, unspecified (ICD-10) Atrial flutter ?I48.92 - Unspecified atrial flutter (ICD-10) Social History (Updated 06/04/23 @ 21:13 by Mani Zepeda MD) Narrative: He lives in [place] with his . Son, Romel, lives nearby. Romel and his are healthcare power of environmental attorney. Code status is DNR. He is a nonsmoker. What is your current living situation?: I presently have a place to live Problems where you live: no known problems Problems where you live details: N/A In the past 12 months, utilities in danger of being shut off: no In past 12 months, lack of transportation kept you from medical appts, meetings, work, or getting things needed for daily living: no In the past 12 mos, have been you worried that your food would run out before you had money to buy more?: never true In the past 12 mos, the food you bought just didn't last and you didn't have money to buy more?: never true Highest level of school completed/degree received: Bachelor's degree Smoking Status: Never smoker Do you use any of these nicotine containing products: None Second hand tobacco smoke exposure: No How often do you have a drink containing alcohol: monthly or less How often do you have six or more drinks on one occasion: Never AUDIT-C Alcohol total score: 1 Non-prescribed substance use: denies use Caffeine: No How often does anyone, including family, friends and others, physically hurt you: never How often does anyone, including family, friends and others, insult or talk down to you: never How often does anyone, including family, friends and others, threaten you with harm: never How often does anyone, including family, friends and others, scream or curse at you: never service: Yes Exam Narrative: Exam Narrative: Vital signs reviewed In general, an elderly male, arouses to voice, answers questions appropriately. Const: Vital Signs, click to edit/add: Vital Signs - 24 hr 06/07/23 19:28 06/07/23 19:45 Temperature 97.3 F L Pulse Rate [Pulse Oximeter] 95 Respiratory Rate 16 Blood Pressure [Le ft Upper Arm] 90/70 Pulse Oximetry 99 99 Oxygen Delivery Me thod Nasal Cannula Nasal Cannula Oxygen Flow Rate 2 2 Documenting provider has reviewed patient's vital signs: yes Course Course ED Course: I spoke with the hospitalist Dr. Clark, plan will be to admit the patient back to the hospital and sort out placement tomorrow. Given hospice/comfort cares goals, I did not pursue any diagnostic workup here. He was on a little bit of oxygen secondary to O2 sats of 91% on room air. He denied any pain or other complaints to me aside from swelling. Vital Signs Vital signs: Initial Vital Signs Temperature 97.3 F L 06/07/23 19:28 Temperature Source Temporal Artery Scan 06/07/23 19:28 Pulse Rate 95 06/07/23 19:28 Respiratory Rate 16 06/07/23 19:28 Blood Pressure 90/70 06/07/23 19:28 Blood Pressure Mean 76 06/07/23 19:28 Pulse Oximetry 99 06/07/23 19:28 Oxygen Delivery Method Nasal Cannula 06/07/23 19:28 Oxygen Flow Rate 2 06/07/23 19:28 Vital Signs Temperature 97.3 F L 06/07/23 19:28 Pulse Rate 95 06/07/23 19:28 Respiratory Rate 16 06/07/23 19:28 Blood Pressure 90/70 06/07/23 19:28 Pulse Oximetry 99 06/07/23 19:28 Oxygen Delivery Method Nasal Cannula 06/07/23 19:28 Oxygen Flow Rate 2 06/07/23 19:28 Temperature 97.3 F L 06/07/23 19:28 Pulse Rate 95 06/07/23 19:28 Respiratory Rate 16 06/07/23 19:28 Blood Pressure 90/70 06/07/23 19:28 Pulse Oximetry 99 06/07/23 19:45 Oxygen Delivery Method Nasal Cannula 06/07/23 19:45 Oxygen Flow Rate 2 06/07/23 19:45 Discharge Plan Discharge Clinical Impression: CHF (congestive heart failure) Patient Disposition: Admitted As Observation
[2023-06-07 20:45] VITALS: BP 83/55; PULSE 96; RESP 14; TEMP 35.8; O2SAT 93; BMI 25.6
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
[2023-06-07] MEDS: fentaNYL 12 mcg/hr PATCH 1 PATCH TRANSDERMA (22:25)
--- NOTE | 2023-06-07 22:52 | PC.NURSE ---
End of shift nursing note: Pt arrived to unit around 2029 from ED, slid from ED bed to unit bed w/ Ax3. Pt very drowsy but arousable to answer a couple questions before resuming sleep. Pt denies being in pain. Is able to turn in bed ind w/ direction. Pt's son 'Romel' and granddaughter 'Vicki' arrived with pt, pleasant and cooperative. Pt's vitals obtained on admission, BP decreased at 83/55, hospitalist aware, HR 96bpm, O2 93% on 2L NC for comfort. Edema noted to LUE and LLE. Scheduled Fentanyl patch applied to R upper arm. Mouth swabs and personal cares supplies and ice water at bedside. Call light within pt reach and bed alarm on.
[2023-06-08 00:05] VITALS: RESP 16
--- NOTE | 2023-06-08 06:09 | PC.NURSE ---
END OF SHIFT NOTE: PT PLEASANTLY DEMENTED ON COMFORT CARES. DENIES CP, SOB, N/V. PT HAS BEEN TURNED AND REPOSITIONED WITH PILLOWS FOR OFFLOADING THIS SHIFT. ON 2L NC FOR PT COMFORT. BED ALARM ON AND CALL LIGHT WITHIN PT?S REACH.?
[2023-06-08 07:00] VITALS: RESP 16; RESP 18; O2SAT 83
[2023-06-08] MEDS: TAMSULOSIN HCL 0.4 MG CAPSULE PO (09:29)
[2023-06-08] MEDS: APIXABAN 5 MG TABLET 2.5 MG PO ×2 (09:29→21:12)
[2023-06-08] MEDS: FUROSEMIDE 40 MG TABLET PO (09:29)
[2023-06-08] MEDS: ACETAMINOPHEN 325 MG TABLET 650 MG PO (09:29)
[2023-06-08] MEDS: ASPIRIN 81 MG TABLET EC PO (09:29)
[2023-06-08] MEDS: AMIODARONE 200 MG TABLET 100 MG PO (09:29)
[2023-06-08] MEDS: SERTRALINE 50 MG TABLET PO (09:30)
--- NOTE | 2023-06-08 13:17 | PM.IMPN1 ---
Progress Note: A&P Assessment and plan (1) Terminal care: Problem details: Patient is hospice appropriate for congestive heart failure, end-stage. Renal failure. Attempt at facility placement for hospice care did not go well yesterday. Patient returned for further care. I spoke with the son, Romel, for an extended period of time. I explained we cannot open hospice care in the inpatient setting. I explained that his options are to take the next available option for facility hospice care or take his dad home with hospice at home. He understood and is awaiting options for facility care. Status: Acute (2) Cardiogenic shock: Problem details: MAP decreasing. Hospice appropriate. comfort cares initiated Status: Acute Subjective Date Seen: 06/08/23 Interval history: Daily Progress Note - Hospital Medicine Day #: 2 CC: pallative care; hospice appropriate. OVERNIGHT UPDATES FROM STAFF & MED, LAB, IMAGING UPDATES Quiet night. Patient remains hypotensive. Making little urine. Resting comfortably. He is now on 2 L nasal cannula oxygen. Objective: Pale, ill-appearing. Cachectic. Still smiling. Vitals: see above Lungs: Clear. Cardiac: S1S2. Exam Const: Vital Signs, click to edit/add: Vital Signs - 24 hr 06/07/23 19:28 06/07/23 19:45 06/07/23 20:45 Temperature 97.3 F L 96.5 F L Pulse Rate [Pulse Oximeter] 95 96 Respiratory Rate 16 14 Blood Pressure [Le ft Upper Arm] 90/70 Blood Pressure [Ri ght Arm] 83/55 L Pulse Oximetry 99 99 93 Oxygen Delivery Me thod Nasal Cannula Nasal Cannula Room Air Oxygen Flow Rate 2 2 06/07/23 20:45 06/08/23 00:05 06/08/23 00:05 Temperature Pulse Rate [Pulse Oximeter] Respiratory Rate 14 16 16 Blood Pressure [Le ft Upper Arm] Blood Pressure [Ri ght Arm] Pulse Oximetry 93 Oxygen Delivery Me thod Nasal Cannula Nasal Cannula Oxygen Flow Rate 2 06/08/23 07:00 Temperature Pulse Rate [Pulse Oximeter] Respiratory Rate 16 Blood Pressure [Le ft Upper Arm] Blood Pressure [Ri ght Arm] Pulse Oximetry Oxygen Delivery Me thod Oxygen Flow Rate
--- NOTE | 2023-06-08 13:57 | PC.SOCIAL ---
Discharge planning: has spoken with family, who are requesting placement at another [facility] facility and would agree with placement at [facility] if there are no beds in facilities in [place]. Family is also still considering discharge home with hospice care. Called [facility], [facility] and [facility] and there is no availability in these facilities. Called [facility] and faxed information for evaluation for admit. Called [facility] in [place] and they have no availability. Called [facility] in [place] and left message requesting call back regarding bed availability. Called [facility] and spoke with Breonna Sylvester who states they could start hospice care at home or in a facility today or over the weekend. The weekend number to call for [facility] is [phone]. site worker to follow up as needed.
[2023-06-08 15:00] VITALS: RESP 20; O2SAT 90
--- NOTE | 2023-06-08 16:17 | PC.SOCIAL ---
Discharge Planning: Met with multiple family members (including patient's spouse, and son from [place]) as requested to discuss hospice services in detail. Explained hospice services at home and at a facility. Answered questions. Family would prefer to have patient go to a SNF. Discussed with family options of SNF that might be able to accept patient on Monday 06/11. Family has now decided that they do not want patient to go to [facility]. They would like to go to [facility] in [place] ([phone]). This facility has private rooms and family would prefer this. Paperwork faxed to [employer] [phone]. Family would still prefer to use [facility]. Packet faxed to [facility] [place]. Msg left for Sales Account Associate. Contacted [facility] [phone] to update on plan. They will need confirmation of DC for Sunday. Social work to follow up as needed.
--- NOTE | 2023-06-08 19:29 | PC.NURSE ---
Nursing Care Hours: [id number] Pt this shift calm and cooperative, oriented to self. States pain in morning but can not specify, Tylenol given. Lower abdomen at point of bladder distended. Bladder scan done and shows no retention. No u/o all shift, no BM. Took pills in pudding this AM followed with sips of water. Attempt to give sips of water throughout day but pt too weak. Abrasion to left outer upper arm covered with Mepilex. Oral cares done by staff and family members with oral swab and lip moisturizer. Turned and repositioned Q2H, no signs of pain. Breathing increasing in depth with periods of apnea.
[2023-06-08 21:00] VITALS: RESP 16; O2SAT 97
[2023-06-08] MEDS: fentaNYL 12 mcg/hr PATCH 1 PATCH TRANSDERMA (21:13)
--- NOTE | 2023-06-09 05:58 | PC.NURSE ---
END OF SHIFT NOTE: PT ON COMFORT CARES. DECREASED AMOUNT OF WAKEFULNESS. HX OF DEMENTIA. TURNED AND REPOSITIONED FOR COMFORT. ON 2L NC OF SUPPLEMENTAL O2. MITCHELL CATHETER PLACED DRAINING DARK TYLER/BROWN URINE. BED ALARM ON AND CALL LIGHT WITHIN PT?S REACH.?
[2023-06-09 07:00] VITALS: PULSE 96; RESP 16
[2023-06-09] MEDS: FUROSEMIDE 40 MG TABLET PO (10:28)
[2023-06-09] MEDS: SERTRALINE 50 MG TABLET PO (10:29)
[2023-06-09] MEDS: ACETAMINOPHEN 325 MG TABLET 650 MG PO (10:29)
[2023-06-09] MEDS: ASPIRIN 81 MG TABLET EC PO (10:29)
[2023-06-09 14:49] VITALS: PULSE 96; RESP 16
--- NOTE | 2023-06-09 17:57 | PC.NURSE ---
Pt comfortable all day. Awake and alert off and on through out day. Taking in small amounts of food. Drank 800 cc. Quick catheter in place, catheter cares done- 300 cc out. No BM. Repositioned q2h. Family here all day. Will continue to keep pt comfortable, follow POC, keep family updated. Latoya Ganrer RN
[2023-06-09 22:29] VITALS: RESP 16
[2023-06-10 07:00] VITALS: RESP 16
--- NOTE | 2023-06-10 07:29 | PC.NURSE ---
END OF SHIFT NOTE: PT PLEASANTLY DEMENTED. A&Ox1. LETHARGIC. OPENS EYES WHEN ASKED QUESTIONS, PT BEGINS TO ANSWER AND FALLS ASLEEP. LOTION APPLIED TO PT?S BACK AND LEGS FOR COMFORT. TURNED AND REPOSITIONED THROUGHOUT THE NIGHT WITH PILLOWS FOR OFFLOADING. ON 1L NC FOR PT COMFORT; SPO2 MID-HIGH 90?S. MITCHELL PATENT DRAINING DARK TYLER URINE. BED ALARM ON AND CALL LIGHT WITHIN PT?S REACH. PT GRANDDAUGHTER- JUNE VOICE CONCERN ABOUT PT POSSIBLY BEING AGITATED AND QUESTIONED WHETHER OXYGEN SHOULD BE TURNED UP. NURSE REASSESSED PT; RR 16, EVEN AND UNLABORED, SPO2 97%. PT RESTING COMFORTABLY.?
[2023-06-10] MEDS: ACETAMINOPHEN 325 MG TABLET 650 MG PO ×2 (09:47→17:33)
[2023-06-10] MEDS: FUROSEMIDE 40 MG TABLET PO (09:48)
[2023-06-10] MEDS: SERTRALINE 50 MG TABLET PO (09:48)
[2023-06-10] MEDS: ASPIRIN 81 MG TABLET EC PO (09:48)
--- NOTE | 2023-06-10 15:37 | PM.IMPN1 ---
Progress Note: A&P Assessment and plan (1) Terminal care: Problem details: Patient is hospice appropriate for congestive heart failure, end-stage. Renal failure. Attempt at facility placement for hospice care did not go well on 06/07/2023. Patient returned to the hospital for further care and attempt more appropriate disposition to meet patient and family needs and desires. We spoke with the son, Romel, and explained we cannot open hospice care in the inpatient setting. We explained that his options are to take the next available option for facility hospice care or take his dad home with hospice at home. He understood and is awaiting options for facility care. Status: Acute (2) Cardiogenic shock: Problem details: MAP decreasing. Hospice appropriate. comfort cares initiated Status: Acute Plan 1. Reviewed with patient and his son, Romel. 2. Continue with plans as specified above. 3. Answered their questions to their satisfaction. 4. They are agreeable with stated plans and recommendations. Time Spent With Patient Total time spent: 15 minutes Subjective Time Seen by Provider: 09:00 Date Seen: 06/10/23 Interval history: Daily Progress Note - Hospital Medicine Day #: 3 CC: pallative care; hospice appropriate. OVERNIGHT UPDATES FROM STAFF & MED, LAB, IMAGING UPDATES Quiet night. Patient remains hypotensive. Making little urine. Resting comfortably. He is now on 2 L nasal cannula oxygen. Objective: Pale, ill-appearing. Cachectic. Still smiling. No acute distress. Alert when awake. Often sleeping. Lungs: Clear. Cardiac: S1S2. Abdomen is soft. Eats a few bites and drinks without coughing or aspirating. Exam Const: Vital Signs, click to edit/add: Vital Signs - 24 hr 06/09/23 22:29 06/10/23 07:00 Respiratory Rate 16 16
--- NOTE | 2023-06-10 18:09 | PC.NURSE ---
Shift Note: Pt alert and visiting with son at the bedside this morning. Declined breakfast tray but did have a few bites of applesauce. Wakes to verbal stimuli and answers yes/no questions. Difficulty word finding to say his name and and reported the wrong . decreased urine output. Oral cares and bed bath provided, t&r q2h. Family at bedside most of the day. Pt c/o mild discomfort, PRN Tylenol given PO.
[2023-06-10] MEDS: fentaNYL 12 mcg/hr PATCH 1 PATCH TRANSDERMA (23:15)
--- NOTE | 2023-06-11 05:34 | PC.NURSE ---
End of shift note: Uneventful night. Pt on comfort cares. Turned and repositioned throughout the night with pillows for offloading and comfort. Offered pt water several times this shift and pt has declined. Quick patent draining dark stephanie urine. A&Ox1. Pt removed from supplemental O2 d/t SpO2 >97% and no increased work of breathing.
[2023-06-11] MEDS: ASPIRIN 81 MG TABLET EC PO (08:25)
[2023-06-11] MEDS: SERTRALINE 50 MG TABLET PO (08:25)
[2023-06-11] MEDS: FUROSEMIDE 40 MG TABLET PO ×2 (08:25→08:28)
--- NOTE | 2023-06-11 11:51 | PC.SOCIAL ---
Discharge planning: Received call from Breonna at [facility] (phone [phone], fax [phone]. Stating she received a call from the son stating pt will be going home and requesting hospice services for home for discharge today. [facility] will open pt to hospice at 6:00 pm today. Per [facility], equipment will be delivered to home by 3:00 today. Non emergency ambulance will be arranged for a time after equipment has been delivered to home and before hospice team scheduled admit at home. Met with pt and sons, Romel and José Miguel, in room regarding this plan. Confirmed they are in agreement with pt being discharged home with hospice today and with waiting until equipment is delivered before pt is transported. Called Marixa at [facility], and informed her that pt has returned to the hospital and will be discharged home. Marixa states the [facility] can reassess pt for community services and look into starting these again, or the family can request additional home hospice rn care from the [facility]. Called [facility] and was informed the pantry goods worker can assist family in figuring out how to request the needed extra assistance from home through [facility] or [facility] and will follow up with family as needed at first meeting with hospice patient care secretary tomorrow at home.
--- NOTE | 2023-06-11 14:11 | P.DS_ITS ---
DS: Providers Provider Time Seen by Provider: 10:00 Date Seen: 06/11/23 Date of admission: 06/09/23 14:52 Primary care physician: Cleveland Borja MD Admitting Clinician: Lexx Bonilla MD Consults: 06/07/23 21:00 Consult to [employer] Inserter [CONS] Routine Comment: Reason for Consult:: Discharge Planning Needs Attending Physician on discharge: Arthur Clark MD Date of Discharge: 06/11/23 DS: Diagnosis Discharge Diagnosis (1) Terminal care: Status: Acute Problem details: Patient is hospice appropriate for congestive heart failure, end-stage. Renal failure. Attempt at facility placement for hospice care did not go well on 06/07/2023. Patient returned to the hospital for further care and attempt more appropriate disposition to meet patient and family needs and desires. We spoke with the son, Nicholas, and they decided to bring patient home with hospice services. (2) Cardiogenic shock: Status: Acute Problem details: MAP decreasing. Hospice appropriate. comfort cares initiated (3) CHF (congestive heart failure): Status: Acute Problem details: Acute on Chronic. Systolic. NYH class 3-4. Reduced ejection fraction. Echocardiogram 06/04/2023 shows ejection fraction of 20-25%, severe global reduction in systolic function. Moderately reduced right ventricular function. Moderate mitral regurg, tricuspid regurg, pulmonary regurg (all worse than previous) -hospice appropriate. (4) Acute kidney injury superimposed on chronic kidney disease: Status: Acute (5) Anemia: Status: Acute Problem details: Chronic and slowly progressive. -hospice appropriate (6) Diabetes: Status: Acute Problem details: A1c 7.1. Holding metformin. Comfort care is initiated. (7) Non-Hodgkin lymphoma: Status: Acute Problem details: Diffuse large B-cell lymphoma diagnosed 10 years ago and treated with Rituxan and chop. 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 Treated with Rituxan and bendamustine. No obvious evidence for recurrence at this time. (8) Dementia: Status: Acute Problem details: Moderate to severe, pleasant, without behaviors. (9) GERD (gastroesophageal reflux disease): Status: Acute (10) Atrial fibrillation: Status: Acute Problem details: Currently appears to be in sinus rhythm. (11) Weakness: Status: Acute Problem details: Generalized, moderately severe. (12) Frequent falls: Status: Acute Problem details: Therapy to evaluate and treat poor cardiac output likely contributing DS: Summary Hospital Course Hospital Course: Patient had been hospitalized from 06/04/2023 through 06/07/2023 at [facility] with biventricular heart failure, ejection fraction 20-25%. Had concurrent acute kidney injury superimposed on chronic kidney disease. Patient family opted for terminal comfort measures thereafter. Patient was discharged to a group home facility in [place] on 06/07/2023, it was apparent to them that the facility was grossly inadequate to meet the patient's needs and their needs for terminal comfort cares. Within a few hours of admission to the group home facility the family summon EMS by calling 911 and had the patient transferred back to [facility]. Presently in the hospital efforts were directed toward establishing a safe discharge disposition that would be safe and appropriate for patient and family. Family ultimately decided to be discharged home with hospice support. They decided to work with [facility]. Status at Discharge Cognitive/behavioral status at discharge: Baseline dementia with increasing fatigue and somnolence. Eating and drinking periodically. Functional status at discharge: bed bound Overall status at discharge: patient is not back to baseline Time Spent with Patient Time attestation: Total time spent providing and/or coordinating discharge services: Time spent: Greater than 30 minutes Exam Narrative: Exam Narrative: Objective: Pale, ill-appearing. Cachectic. Still smiling. When awake he is alert, oriented to self only. Able to be reoriented to place, time, and situation. Pleasant disposition. No acute distress. Alert when awake. Often sleeping. Lungs: Clear. Cardiac: S1S2. Abdomen is soft. Eats a few bites and drinks without coughing or aspirating. Const: Documenting provider has reviewed patient's vital signs: yes Discharge Plan Discharge Disposition: Xfer Home- (Hospice) Date of Admission: 06/09/23 14:52 Attending Provider on Discharge: Arthur Clark Primary Care Provider: Cleveland Borja Condition: Unchanged Anticipated Discharge Date/Time: 06/11/23 16:00 Discharge Medications: New fentanyl 12 mcg/hr Patch 72 Hour 1 patch transdermal Q72H 15 Days Qty: 5 0RF Continued furosemide 40 mg tablet 40 mg PO DAILY Qty: 30 3RF aspirin 81 mg tablet,delayed release (DR/EC) 81 mg PO DAILY sertraline 50 mg tablet 50 mg PO DAILY tamsulosin 0.4 mg capsule 0.4 mg PO DAILY Hold Instructions: unknown Discontinued amiodarone 100 mg tablet 100 mg PO DAILY apixaban 5 mg tablet 2.5 mg PO BID atorvastatin 40 mg tablet 40 mg PO HS vitamin B complex [B Complex-Vitamin B12] Tablet 1 tab PO DAILY calcium carbonate-vitamin D3 [Calcium 500 + D] 500 mg-5 mcg (200 unit) tablet 1 tab PO BID metformin 1,000 mg tablet 500 mg PO BIDWMEAL metoprolol tartrate 50 mg tablet 25 mg PO BID lisinopril 10 mg tablet 5 mg PO DAILY ascorbic acid (vitamin C) 500 mg capsule 500 mg PO DAILY cholecalciferol (vitamin D3) 25 mcg (1,000 unit) capsule 25 mcg PO DAILY levothyroxine 100 mcg capsule 100 mcg PO DAILY melatonin 3 mg capsule 3 mg PO HS PRN multivitamin Tablet 1 tab PO DAILY vitamin E mixed 400 unit capsule 400 unit PO DAILY Discharge Orders: Discharge Order (Routine); Ordered 06/11/23 Ordered By: Arthur Clark Additional Instructions: 1. Comfort focused treatments with DNR/DNI resuscitation status; 2. [facility] to meet patient and his family at his home today to initiate end-of-life cares with hospice services. Activity Level: Activity as Tolerated Discharge Diet: Regular Follow Up Appointments: Cleveland Borja MD [Primary Care Provider] - Forms: [employer] Info Instructions
--- NOTE | 2023-06-11 16:17 | PC.NURSE ---
Pt alert to self. Pt awake during shift. Pt pleasant and cooperative. Pt had no complaints of pain. Pt had family at bedside. Pt had an appetite today. Pt discharged home with family on hospice. Hospice services will meet at home tonight; sams catheter left in place.?
== END 2023-06-11 15:55 | disposition hospice, home (50) | DRG 291 ==
LOC: ED 20:25 → MEDSURG 20:35
PROVIDERS: Admitting Provider Internal Medicine; Emergency Provider Emergency Medicine; PCP Internal Medicine; Visit Provider Family Medicine
DX: I13.0 Hypertensive heart and chronic kidney disease with heart failure and stage 1 through stage 4 chronic kidney disease, or unspecified chronic kidney disease (principal); I50.23 Acute on chronic systolic (congestive) heart failure; R57.0 Cardiogenic shock; N17.9 Acute kidney failure, unspecified; C85.90 Non-Hodgkin lymphoma, unspecified, unspecified site; I50.84 End stage heart failure; N18.9 Chronic kidney disease, unspecified; E11.22 Type 2 diabetes mellitus with diabetic chronic kidney disease; D64.9 Anemia, unspecified; F03.C0 Unspecified dementia, severe, without behavioral disturbance, psychotic disturbance, mood disturbance, and anxiety; R53.1 Weakness; Z91.81 History of falling; R29.6 Repeated falls; I48.91 Unspecified atrial fibrillation; E03.9 Hypothyroidism, unspecified; I08.1 Rheumatic disorders of both mitral and tricuspid valves
CPT/HCPCS: 36415; 51701; 51798; 70450; 71045; 72170; 80048; 80053; 80076; 82270; 82962; 83036; 83540; 83550; 83605; 83735; 83880; 84484; 85025; 86140; 87631; 93005; 93306; 94761; 96360; 96372; 97116; 97161; 97530; 99283; 99284; 99285; G0378; A9153; A9270; J1642; J7030; J7120

== ENCOUNTER 2023-06-11 15:49 | Outpatient (CLI) | payer MEDICARE, MEDICAID, OTHER, BC, SELFPAY | END 2023-06-11 15:50 | disposition home or self-care (01) | LOC: AMB 07-16 14:23 | PROVIDERS: PCP Internal Medicine; Visit Provider Emergency Medicine | DX: R53.1 Weakness (principal) | CPT/HCPCS: A0425; A0428 ==